=== PATIENT | female | born 1960 | race Caucasian/White ===

== ENCOUNTER 2016-12-16 11:11 | Outpatient (CLI) | payer BC | END 2016-12-16 11:12 | disposition home or self-care (01) | DX: E11.9 Type 2 diabetes mellitus without complications (principal); E78.5 Hyperlipidemia, unspecified; D50.9 Iron deficiency anemia, unspecified ==

== ENCOUNTER 2017-07-16 11:46 | Outpatient (CLI) | payer BC ==
[2017-07-16 19:10] LABS: BASOPHILS # (AUTO) 0.1 10^3/uL (0.0-0.1); BASOPHILS % (AUTO) 0.6 %; EOSINOPHILS # (AUTO) 0.2 10^3/uL (0.0-0.7); EOSINOPHILS % (AUTO) 2.2 %; HCT - HEMATOCRIT 40.8 % (37.0-47.0); HGB - HEMOGLOBIN 13.5 g/dL (12.0-16.0); MEAN CORPUSCULAR HGB CONC 33.1 g/dL (32.0-36.0); MEAN CORPUSCULAR VOLUME 96.5 fL (81.0-99.0); MEAN PLATELET VOLUME 8.9 fL (7.9-10.8); MONOCYTES # (AUTO) 0.4 10^3/uL (0.0-1.0); MONOCYTES % (AUTO) 5.1 %; NEUTROPHILS % (AUTO) 69.1 %; NUCLEATED RED BLOOD CELLS AUTO 0.1 /100WBC; RED BLOOD COUNT 4.23 10^6/uL (4.20-5.40); RED CELL DISTRIBUTION WIDTH 13.6 % (12.0-15.0); UNCORRECTED WHITE BLOOD COUNT 8.7 x10^3/uL; WHITE BLOOD COUNT 8.7 x10^3/uL (4.8-10.8)
[2017-07-16 19:33] LABS: HEMOGLOBIN A1C 0.57 g/dL
[2017-07-16 19:34] LABS: PLATELET ESTIMATE, MANUAL NORMAL (130-450,000) (NORMAL); PLATELET MORPHOLOGY 1+ LARGE PLATELETS (NORMAL)
[2017-07-16 19:37] LABS: ALBUMIN/GLOBULIN RATIO 1.7 (1.0-2.2); BILIRUBIN,TOTAL 0.6 mg/dL (0.2-1.0); BUN - BLOOD UREA NITROGEN 9 mg/dL (6-20); CALCIUM 9.5 mg/dL (8.5-10.3); CARBON DIOXIDE - CO2 28 mmol/L (21-32); CHLORIDE 100 mmol/L (101-111); CHOL/HDL RATIO 4.5 (<4.4); CHOLESTEROL 237 mg/dL; CREATININE 0.6 mg/dL (0.4-1.0); GFR - MDRD 103 (>89); GLUCOSE 146 mg/dL (70-100); HDL CHOLESTEROL 53 mg/dL; LDL/HDL RATIO 2.4 (<4.4); POTASSIUM 3.9 mmol/L (3.5-5.0); SODIUM 139 mmol/L (135-145); TOTAL PROTEIN 7.8 g/dL (6.7-8.2); TRIGLYCERIDES 274 mg/dL; VLDL CHOLESTEROL 55 mg/dL
== END 2017-07-16 11:47 | disposition home or self-care (01) ==
LOC: LAB.WCP 11:46
PROVIDERS: ATTEND Family Medicine
DX: E11.9 Type 2 diabetes mellitus without complications (principal)
CPT/HCPCS: 36415; 80053; 80061; 83036; 85025

== ENCOUNTER 2017-07-17 11:18 | Outpatient (CLI) | payer BC ==
[2017-07-19 16:16] LABS: TEST RESULT REPORT (())
== END 2017-07-17 11:19 | disposition home or self-care (01) ==
LOC: LAB.R 11:18
PROVIDERS: ATTEND Family Medicine
DX: R19.7 Diarrhea, unspecified (principal)
CPT/HCPCS: 81599; 83630; 87045; 87046; 87177; 87209; 87329; 87493; 89055

== ENCOUNTER 2017-12-11 08:00 | Outpatient (CLI) | payer BC ==
[2017-12-11 12:35] LABS: BASOPHILS % (AUTO) 0.5 %; EOSINOPHILS # (AUTO) 0.1 10^3/uL (0.0-0.7); HGB - HEMOGLOBIN 14.2 g/dL (12.0-16.0); LYMPHOCYTES # (AUTO) 3.6 10^3/uL (1.5-3.5); LYMPHOCYTES % (AUTO) 38.4 %; MEAN CORPUSCULAR HEMOGLOBIN 32.6 pg (27.0-31.0); MEAN CORPUSCULAR HGB CONC 34.4 g/dL (32.0-36.0); MEAN CORPUSCULAR VOLUME 94.9 fL (81.0-99.0); MEAN PLATELET VOLUME 8.4 fL (7.9-10.8); MONOCYTES # (AUTO) 0.5 10^3/uL (0.0-1.0); MONOCYTES % (AUTO) 5.3 %; NEUTROPHILS # (AUTO) 5.1 10^3/uL (1.5-6.6); NEUTROPHILS % (AUTO) 54.8 %; PLT - PLATELET COUNT 244 10^3/uL (130-450); RED BLOOD COUNT 4.36 10^6/uL (4.20-5.40); RED CELL DISTRIBUTION WIDTH 13.5 % (12.0-15.0); WHITE BLOOD COUNT 9.4 x10^3/uL (4.8-10.8)
[2017-12-11 12:55] LABS: THYROID STIMULATING HORMONE 3.91 uIU/mL (0.34-5.60)
[2017-12-11 12:59] LABS: FERRITIN 121.7 ng/mL (11.0-306.8)
[2017-12-11 13:03] LABS: % IRON SATURATION 27 % (20-50); ALBUMIN 4.9 g/dL (3.2-5.5); ALBUMIN/GLOBULIN RATIO 1.7 (1.0-2.2); ALKALINE PHOSPHATASE 68 IU/L (42-121); ALT ALANINE AMINOTRANSFERASE 48 IU/L (10-60); AST ASPARTATE AMINOTRANSFERASE 51 IU/L (10-42); BILIRUBIN,TOTAL 0.6 mg/dL (0.2-1.0); BUN - BLOOD UREA NITROGEN 15 mg/dL (6-20); CALCIUM 9.3 mg/dL (8.5-10.3); CARBON DIOXIDE - CO2 26 mmol/L (21-32); CHLORIDE 103 mmol/L (101-111); CHOL/HDL RATIO 4.2 (<4.4); CHOLESTEROL 290 mg/dL; CREATININE 0.5 mg/dL (0.4-1.0); GFR - MDRD 128 (>89); GLUCOSE 95 mg/dL (70-100); HDL CHOLESTEROL 69 mg/dL; IRON 113 ug/dL (28-170); LDL CHOLESTEROL,CALCULATED 163 mg/dL; LDL/HDL RATIO 2.4 (<4.4); SODIUM 140 mmol/L (135-145); TOTAL IRON BINDING CAPACITY 416 ug/dL (250-450); TOTAL PROTEIN 7.8 g/dL (6.7-8.2); TRANSFERRIN 297 mg/dL (192-382); VLDL CHOLESTEROL 58 mg/dL
[2017-12-11 13:18] LABS: HB2 TOTAL 15.8 g/dL; HEMOGLOBIN A1C 0.64 g/dL; HEMOGLOBIN A1C % 5.9 % (4.6-6.2)
== END 2017-12-11 08:01 | disposition home or self-care (01) ==
LOC: LAB.WCP 08:00
PROVIDERS: ATTEND Family Medicine
DX: I10 Essential (primary) hypertension (principal); E78.5 Hyperlipidemia, unspecified; E11.9 Type 2 diabetes mellitus without complications; D50.9 Iron deficiency anemia, unspecified
CPT/HCPCS: 36415; 80053; 80061; 82043; 82728; 83036; 83540; 83721; 84443; 84466; 85025

== ENCOUNTER 2018-03-10 07:10 | Outpatient (CLI) | payer BC ==
[2018-03-10] MEDS ORDERED: IOPAMIDOL-300 50 ML VIAL ONE (07:32)
[2018-03-10] MEDS ORDERED: IOPAMIDOL-300 100 ML VIAL ONE (07:32)
[2018-03-10] MEDS ORDERED: IOPAMIDOL-300 50 ML VIAL PO ONE (08:54)
[2018-03-10] MEDS ORDERED: IOPAMIDOL-300 100 ML VIAL IVP ONE (08:54)
--- NOTE | 2018-03-10 12:53 | CT Report ---
CT ABDOMEN AND PELVIS WITH CONTRAST: 03/10/2018 CLINICAL INDICATION: Abdominal pain. TECHNIQUE: Axial CT images of the abdomen and pelvis were obtained with 100 mL Isovue 300 intravenously as well as oral contrast. FINDINGS: Limited evaluation of the lung bases is unremarkable. ABDOMEN: The liver is enlarged, and demonstrates decreased attenuation, compatible with fatty infiltration. No focal hepatic lesion or intrahepatic biliary dilatation is appreciated. The gallbladder is not dilated. The spleen, pancreas, kidneys and adrenal glands are unremarkable. No bowel dilatation, free gas, or free fluid is present. No abdominal adenopathy is seen. PELVIS: The appendix is seen in the right lower quadrant, and demonstrates normal caliber. No pelvic adenopathy or free fluid is present. The pelvic organs appear unremarkable. Osseous structures demonstrate degenerative changes. IMPRESSION: FATTY INFILTRATION OF THE LIVER. CT DOSE REDUCTION STATEMENT In accordance with CT protocol optimization, one or more of the following dose reduction techniques were utilized for this exam: automated exposure control, adjustment of mA and/or KV based on patient size, or use of iterative reconstructive technique. TD: 03/10/2018 12:52
== END 2018-03-10 07:11 | disposition home or self-care (01) ==
LOC: DI 07:10
PROVIDERS: ATTEND Family Medicine
DX: R10.9 Unspecified abdominal pain (principal); K76.0 Fatty (change of) liver, not elsewhere classified
CPT/HCPCS: 74177; Q9967

== ENCOUNTER 2018-03-20 10:45 | Outpatient (CLI) | payer BC | END 2018-03-20 10:46 | disposition home or self-care (01) | LOC: LAB.WCP 10:45 | PROVIDERS: ATTEND Family Medicine | DX: N76.0 Acute vaginitis (principal) | CPT/HCPCS: 87070; 87205 ==

== ENCOUNTER 2018-04-14 16:29 | Outpatient (CLI) | payer BC ==
[2018-04-14 19:07] LABS: BASOPHILS # (AUTO) 0.1 10^3/uL (0.0-0.1); BASOPHILS % (AUTO) 0.7 %; EOSINOPHILS # (AUTO) 0.2 10^3/uL (0.0-0.7); EOSINOPHILS % (AUTO) 1.8 %; LYMPHOCYTES # (AUTO) 2.2 10^3/uL (1.5-3.5); LYMPHOCYTES % (AUTO) 25.6 %; MEAN CORPUSCULAR HEMOGLOBIN 31.8 pg (27.0-31.0); MEAN CORPUSCULAR HGB CONC 33.6 g/dL (32.0-36.0); MEAN CORPUSCULAR VOLUME 94.6 fL (81.0-99.0); MEAN PLATELET VOLUME 9.1 fL (7.9-10.8); MONOCYTES # (AUTO) 0.5 10^3/uL (0.0-1.0); MONOCYTES % (AUTO) 5.3 %; NEUTROPHILS # (AUTO) 5.8 10^3/uL (1.5-6.6); NEUTROPHILS % (AUTO) 66.6 %; PLT - PLATELET COUNT 207 10^3/uL (130-450); RED BLOOD COUNT 4.09 10^6/uL (4.20-5.40); RED CELL DISTRIBUTION WIDTH 12.8 % (12.0-15.0); WHITE BLOOD COUNT 8.7 x10^3/uL (4.8-10.8)
[2018-04-14 19:39] LABS: ALBUMIN 4.7 g/dL (3.2-5.5); ALBUMIN/GLOBULIN RATIO 1.8 (1.0-2.2); BILIRUBIN,TOTAL 0.6 mg/dL (0.2-1.0); CALCIUM 9.2 mg/dL (8.5-10.3); CREATININE 0.5 mg/dL (0.4-1.0); TOTAL PROTEIN 7.3 g/dL (6.7-8.2); URIC ACID 8.2 mg/dL (2.6-7.2)
== END 2018-04-14 16:30 | disposition home or self-care (01) ==
LOC: LAB.WCP 16:29
PROVIDERS: ATTEND Family Medicine
DX: I10 Essential (primary) hypertension (principal); M79.675 Pain in left toe(s)
CPT/HCPCS: 36415; 80053; 84550; 85025

== ENCOUNTER 2018-06-12 12:58 | Outpatient (CLI) | payer BC | END 2018-06-12 12:59 | disposition home or self-care (01) | LOC: LAB.WCP 12:58 | PROVIDERS: ATTEND Podiatrist | DX: E79.0 Hyperuricemia without signs of inflammatory arthritis and tophaceous disease (principal) | CPT/HCPCS: 36415; 84550 ==

== ENCOUNTER 2018-08-11 10:58 | Outpatient (CLI) | payer BC ==
[2018-08-11 18:58] LABS: BASOPHILS # (AUTO) 0.1 10^3/uL (0.0-0.1); BASOPHILS % (AUTO) 0.7 %; EOSINOPHILS # (AUTO) 0.2 10^3/uL (0.0-0.7); HGB - HEMOGLOBIN 13.1 g/dL (12.0-16.0); LYMPHOCYTES # (AUTO) 1.4 10^3/uL (1.5-3.5); LYMPHOCYTES % (AUTO) 18.4 %; MEAN CORPUSCULAR HEMOGLOBIN 32.3 pg (27.0-31.0); MEAN CORPUSCULAR HGB CONC 33.6 g/dL (32.0-36.0); MEAN CORPUSCULAR VOLUME 96.2 fL (81.0-99.0); MEAN PLATELET VOLUME 9.5 fL (7.9-10.8); MONOCYTES # (AUTO) 0.5 10^3/uL (0.0-1.0); MONOCYTES % (AUTO) 6.9 %; NEUTROPHILS # (AUTO) 5.3 10^3/uL (1.5-6.6); PLT - PLATELET COUNT 234 10^3/uL (130-450); RED BLOOD COUNT 4.05 10^6/uL (4.20-5.40); RED CELL DISTRIBUTION WIDTH 13.6 % (12.0-15.0); WHITE BLOOD COUNT 7.5 x10^3/uL (4.8-10.8)
[2018-08-11 19:04] LABS: ALBUMIN 4.4 g/dL (3.2-5.5); ALBUMIN/GLOBULIN RATIO 1.4 (1.0-2.2); ALKALINE PHOSPHATASE 76 IU/L (42-121); ALT ALANINE AMINOTRANSFERASE 33 IU/L (10-60); AST ASPARTATE AMINOTRANSFERASE 52 IU/L (10-42); BILIRUBIN,TOTAL 0.7 mg/dL (0.2-1.0); BUN - BLOOD UREA NITROGEN 8 mg/dL (6-20); CALCIUM 9.5 mg/dL (8.5-10.3); CARBON DIOXIDE - CO2 27 mmol/L (21-32); CHLORIDE 101 mmol/L (101-111); CHOL/HDL RATIO 3.8 (<4.4); CHOLESTEROL 218 mg/dL; CREATININE 0.7 mg/dL (0.4-1.0); GFR - MDRD 86 (>89); GLUCOSE 134 mg/dL (70-100); HDL CHOLESTEROL 57 mg/dL; LDL CHOLESTEROL,CALCULATED 114 mg/dL; SODIUM 140 mmol/L (135-145); TOTAL PROTEIN 7.6 g/dL (6.7-8.2); URIC ACID 6.7 mg/dL (2.6-7.2); VLDL CHOLESTEROL 47 mg/dL
[2018-08-11 19:16] LABS: HB2 TOTAL 13.6 g/dL; HEMOGLOBIN A1C 0.53 g/dL; HEMOGLOBIN A1C % 5.7 % (4.6-6.2)
== END 2018-08-11 10:59 | disposition home or self-care (01) ==
LOC: LAB.WCP 10:58
PROVIDERS: ATTEND Family Medicine
DX: I10 Essential (primary) hypertension (principal); E78.5 Hyperlipidemia, unspecified; E11.9 Type 2 diabetes mellitus without complications; M10.00 Idiopathic gout, unspecified site
CPT/HCPCS: 36415; 80053; 80061; 82043; 83036; 83721; 84443; 84550; 85025

== ENCOUNTER 2018-11-23 12:54 | Outpatient (CLI) | payer BC ==
[2018-11-23 19:32] LABS: BASOPHILS % (AUTO) 0.6 %; EOSINOPHILS % (AUTO) 0.7 %; HGB - HEMOGLOBIN 12.3 g/dL (12.0-16.0); LYMPHOCYTES # (AUTO) 1.9 10^3/uL (1.5-3.5); LYMPHOCYTES % (AUTO) 32.3 %; MEAN CORPUSCULAR HEMOGLOBIN 32.3 pg (27.0-31.0); MEAN CORPUSCULAR HGB CONC 33.3 g/dL (32.0-36.0); MEAN CORPUSCULAR VOLUME 97.1 fL (81.0-99.0); MEAN PLATELET VOLUME 8.9 fL (7.9-10.8); MONOCYTES # (AUTO) 0.4 10^3/uL (0.0-1.0); MONOCYTES % (AUTO) 7.2 %; NEUTROPHILS # (AUTO) 3.5 10^3/uL (1.5-6.6); NEUTROPHILS % (AUTO) 59.2 %; PLT - PLATELET COUNT 192 10^3/uL (130-450); RED CELL DISTRIBUTION WIDTH 14.4 % (12.0-15.0); WHITE BLOOD COUNT 5.9 x10^3/uL (4.8-10.8)
== END 2018-11-23 23:59 | disposition home or self-care (01) ==
LOC: LAB.WCP 12:54
PROVIDERS: ATTEND Family Medicine
DX: D50.9 Iron deficiency anemia, unspecified (principal)
CPT/HCPCS: 36415; 85025

== ENCOUNTER 2019-01-12 10:59 | Outpatient (CLI) | payer BC ==
--- NOTE | 2019-01-12 14:20 | CT Report ---
Reason: CHRONIC SINUSITIS Procedure Date: 01/12/2019 Accession Number: [id number] / [id number] Procedure: CT - Sinuses CPT Code: FULL RESULT: EXAM: CT SINUS EXAM DATE: 01/12/2019 11:19 AM. HISTORY: Chronic sinusitis. COMPARISONS: Sinuses 12/14/2015 10:29 AM. TECHNIQUE: Routine multi-axial CT imaging performed through the sinuses. Iodinated IV contrast: None. Reconstructions: Multiplanar reformats. In accordance with CT protocol optimization, one or more of the following dose reduction techniques were utilized for this exam: automated exposure control, adjustment of mA and/or KV based on patient size, or use of iterative reconstructive technique. FINDINGS: Compared to 2016, there has been interval sinus surgery with marked improvement of imaging appearance. There is residual sinusitis as described. RIGHT Frontal: Small mucoid retention cyst. Ethmoid: Partially resected with mucoperiosteal thickening in residual anatomy. Maxillary: Essentially complete opacification. Sphenoid: Mucoid retention cyst, 25% of volume. LEFT Frontal: Frothy opacification, possibly acute component. Ethmoid: Mucoperiosteal thickening of residual structures, mostly resected. Maxillary: Dependent opacification of the inferior 50%. Sphenoid: Small mucoid retention cyst. Drainage Pathways: The patient is status post sinus surgery with resection of the ostiomeatal complexes and portion of the turbinates bilaterally. The frontal recesses are patent and the sphenoethmoidal passage is widely open status post resection. Nasal Cavity: Widely patent airways status post resection. Osseous Structures: While there is mild mucoperiosteal thickening and some demineralization, osseous margins are intact. Orbits: Unremarkable. Other: None. IMPRESSION: Interval sinus surgery with improvement in sinusitis with evidence of chronic sinusitis as described above. Possibly acute opacification of the left frontal sinus, also seen in 2016. RADIA
== END 2019-01-12 11:00 | disposition home or self-care (01) ==
LOC: DI 10:59
PROVIDERS: ATTEND Family Medicine
DX: J32.9 Chronic sinusitis, unspecified (principal)
CPT/HCPCS: 70486

== ENCOUNTER 2019-01-19 14:30 | Outpatient (CLI) | payer BC | END 2019-01-19 14:31 | disposition home or self-care (01) | LOC: SC 14:30 | PROVIDERS: ATTEND Internal Medicine Pulmonary Disease | DX: G47.33 Obstructive sleep apnea (adult) (pediatric) (principal); E66.9 Obesity, unspecified; Z68.30 Body mass index [BMI] 30.0-30.9, adult | CPT/HCPCS: 99203; 99212 ==

== ENCOUNTER 2019-02-23 08:00 | Outpatient (CLI) | payer BC ==
[2019-02-23 12:45] LABS: BASOPHILS % (AUTO) 0.7 %; EOSINOPHILS # (AUTO) 0.1 10^3/uL (0.0-0.7); EOSINOPHILS % (AUTO) 1.5 %; LYMPHOCYTES # (AUTO) 1.7 10^3/uL (1.5-3.5); LYMPHOCYTES % (AUTO) 28.9 %; MEAN CORPUSCULAR HEMOGLOBIN 29.7 pg (27.0-31.0); MEAN CORPUSCULAR HGB CONC 32.5 g/dL (32.0-36.0); MEAN CORPUSCULAR VOLUME 91.2 fL (81.0-99.0); MEAN PLATELET VOLUME 9.1 fL (7.9-10.8); MONOCYTES # (AUTO) 0.5 10^3/uL (0.0-1.0); MONOCYTES % (AUTO) 8.8 %; NEUTROPHILS # (AUTO) 3.6 10^3/uL (1.5-6.6); NEUTROPHILS % (AUTO) 60.1 %; PLT - PLATELET COUNT 214 10^3/uL (130-450); RED BLOOD COUNT 3.71 10^6/uL (4.20-5.40); RED CELL DISTRIBUTION WIDTH 14.8 % (12.0-15.0); WHITE BLOOD COUNT 5.9 x10^3/uL (4.8-10.8)
[2019-02-23 13:10] LABS: ALBUMIN 4.4 g/dL (3.2-5.5); ALBUMIN/GLOBULIN RATIO 1.5 (1.0-2.2); BILIRUBIN,TOTAL 0.4 mg/dL (0.2-1.0); CALCIUM 9.2 mg/dL (8.5-10.3); CREATININE 0.5 mg/dL (0.4-1.0); TOTAL PROTEIN 7.3 g/dL (6.7-8.2); URIC ACID 5.2 mg/dL (2.6-7.2)
[2019-02-23 13:58] LABS: HB2 TOTAL 11.8 g/dL; HEMOGLOBIN A1C 0.5 g/dL
== END 2019-02-23 23:59 | disposition home or self-care (01) ==
LOC: LAB.WCP 08:00
PROVIDERS: ATTEND Physician Assistant
DX: E11.9 Type 2 diabetes mellitus without complications (principal); M10.00 Idiopathic gout, unspecified site
CPT/HCPCS: 36415; 80053; 83036; 84550; 85025

== ENCOUNTER 2019-03-01 08:00 | Outpatient (CLI) | payer BC ==
[2019-03-01 20:24] LABS: % IRON SATURATION 10 % (20-50); IRON 46 ug/dL (28-170); TOTAL IRON BINDING CAPACITY 465 ug/dL (250-450); TRANSFERRIN 332 mg/dL (192-382)
== END 2019-03-01 23:59 | disposition home or self-care (01) ==
LOC: LAB.WCP 08:00
PROVIDERS: ATTEND Physician Assistant
DX: D50.9 Iron deficiency anemia, unspecified (principal)
CPT/HCPCS: 36415; 82728; 83540; 84466

== ENCOUNTER 2019-05-08 13:01 | Outpatient (CLI) | payer BC ==
--- NOTE | 2019-05-17 17:14 | HISTORY & PHYSICAL EXAMINATION ---
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 HEENT: reports: Rhinoplasty Meds/Allgy - Home Medications Home Medications: Ambulatory Orders Medication Instructions Recorded Confirmed Amlodipine Besylate 5 mg PO DAILY 10/05/14 06/27/16 Pravastatin Sodium 20 mg PO DAILY 10/05/14 06/27/16 Sertraline [Zoloft] 100 mg PO DAILY 10/05/14 06/27/16 Telmisartan [Micardis] 80 mg PO DAILY 10/05/14 06/27/16 Tiotropium [place] [Spiriva] 18 mcg IH BID PRN 10/05/14 06/27/16 Albuterol [Ventolin Hfa] 2 puffs INH Q4H PRN 10/06/14 06/27/16 Aspirin [Aspir 81] 81 mg PO DAILY 09/08/15 06/27/16 metFORMIN [Glucophage] 500 mg PO BID 09/08/15 06/27/16 Ascorbic Acid [Vitamin C] 500 mg PO BID 06/05/16 06/27/16 Ferrous Sulfate 325 mg PO BID 06/05/16 06/27/16 - Allergies Allergies/Adverse Reactions: Allergies Allergy/AdvReac Type Severity Reaction Status Date / Time adhesive AdvReac Severe Welts/Hives Verified 09/08/15 17:27 codeine AdvReac Severe Hallucinations/ Verified 09/08/15 17:27 Nightmares latex AdvReac Severe Welts/Hives Verified 09/08/15 17:27 Sulfa (Sulfonamide AdvReac Severe Nausea/Vomi Verified 09/08/15 17:27 Antibiotics) ting tapes Allergy Hives Uncoded 06/27/16 13:38
== END 2019-05-08 23:59 | disposition home or self-care (01) ==
LOC: LAB.R 13:01
PROVIDERS: ATTEND Surgery
DX: R19.4 Change in bowel habit (principal)
CPT/HCPCS: 81599; 83630; 87045; 87046; 87177; 87209; 87329; 87493; 89055

== ENCOUNTER 2019-06-16 | Day surgery (SDC) | payer BC | END 2019-06-16 06:40 | disposition home or self-care (01) | PROC: 0DBE8ZX Excision of Large Intestine, Via Natural or Artificial Opening Endoscopic, Diagnostic (ICD-10-PCS; principal; 2019-06-16) | DX: R19.4 Change in bowel habit (principal); K64.8 Other hemorrhoids; Z86.010 Personal history of colon polyps; R19.7 Diarrhea, unspecified; J45.909 Unspecified asthma, uncomplicated; I10 Essential (primary) hypertension; G47.30 Sleep apnea, unspecified; E11.9 Type 2 diabetes mellitus without complications; D64.9 Anemia, unspecified | CPT/HCPCS: 45380; 87493; J3010; J7120 ==

== ENCOUNTER 2019-07-08 08:00 | Outpatient (CLI) | payer BC ==
[2019-07-08 14:03] LABS: H. PYLORIS ANTIGEN STL NEGATIVE (Negative)
== END 2019-07-08 23:59 | disposition home or self-care (01) ==
LOC: LAB.R 08:00
PROVIDERS: ATTEND Surgery
DX: R19.7 Diarrhea, unspecified (principal)
CPT/HCPCS: 87338

== ENCOUNTER 2019-08-17 08:00 | Outpatient (CLI) | payer BC ==
[2019-08-17 19:01] LABS: BASOPHILS # (AUTO) 0.1 10^3/uL (0.0-0.1); BASOPHILS % (AUTO) 0.4 %; EOSINOPHILS # (AUTO) 0.1 10^3/uL (0.0-0.7); EOSINOPHILS % (AUTO) 0.7 %; HGB - HEMOGLOBIN 13.7 g/dL (12.0-16.0); LYMPHOCYTES # (AUTO) 1.8 10^3/uL (1.5-3.5); LYMPHOCYTES % (AUTO) 15.5 %; MEAN CORPUSCULAR HEMOGLOBIN 33.7 pg (27.0-31.0); MEAN CORPUSCULAR HGB CONC 33.7 g/dL (32.0-36.0); MEAN PLATELET VOLUME 10.8 fL (7.9-10.8); MONOCYTES # (AUTO) 0.8 10^3/uL (0.0-1.0); MONOCYTES % (AUTO) 6.6 %; PLT - PLATELET COUNT 243 10^3/uL (130-450); RED BLOOD COUNT 4.07 10^6/uL (4.20-5.40); RED CELL DISTRIBUTION WIDTH 13.7 % (12.0-15.0); WHITE BLOOD COUNT 11.9 x10^3/uL (4.8-10.8)
[2019-08-17 19:37] LABS: HB2 TOTAL 14.3 g/dL; HEMOGLOBIN A1C 0.52 g/dL; HEMOGLOBIN A1C % 5.5 % (4.6-6.2)
[2019-08-17 19:41] LABS: ALBUMIN 4.5 g/dL (3.2-5.5); ALBUMIN/GLOBULIN RATIO 1.7 (1.0-2.2); ALKALINE PHOSPHATASE 83 IU/L (42-121); ALT ALANINE AMINOTRANSFERASE 25 IU/L (10-60); AST ASPARTATE AMINOTRANSFERASE 35 IU/L (10-42); BILIRUBIN,TOTAL 0.6 mg/dL (0.2-1.0); BUN - BLOOD UREA NITROGEN 6 mg/dL (6-20); CALCIUM 8.9 mg/dL (8.5-10.3); CARBON DIOXIDE - CO2 27 mmol/L (21-32); CHLORIDE 100 mmol/L (101-111); CHOL/HDL RATIO 3.5 (<4.4); CHOLESTEROL 181 mg/dL; CREATININE 0.6 mg/dL (0.4-1.0); GFR - MDRD 103 (>89); GLUCOSE 172 mg/dL (70-100); HDL CHOLESTEROL 52 mg/dL; LDL CHOLESTEROL,CALCULATED 97 mg/dL; LDL/HDL RATIO 1.9 (<4.4); SODIUM 138 mmol/L (135-145); TOTAL PROTEIN 7.2 g/dL (6.7-8.2); VLDL CHOLESTEROL 32 mg/dL
== END 2019-08-17 08:01 | disposition home or self-care (01) ==
LOC: LAB.WCP 08:00
PROVIDERS: ATTEND Family Medicine
DX: E11.9 Type 2 diabetes mellitus without complications (principal)
CPT/HCPCS: 36415; 80053; 80061; 83036; 83721; 84443; 85025

== ENCOUNTER 2019-08-26 10:18 | Outpatient (CLI) | payer BC, MEDICAID ==
--- NOTE | 2019-08-26 11:53 | Ultrasound Report ---
Reason: ABDOMINAL BLOATING, ALCOHOL USE Procedure Date: 08/26/2019 Accession Number: [id number] / [id number] Procedure: US - Abdomen Complete CPT Code: FULL RESULT: EXAM: ABDOMEN ULTRASOUND EXAM DATE: 08/26/2019 11:09 AM. CLINICAL HISTORY: Abdominal bloating, alcoholic abuse. COMPARISON: ABDOMEN COMPLETE 06/08/2016 8:26 AM. TECHNIQUE: Real-time scanning was performed with static images obtained. FINDINGS: Liver: The liver parenchyma is moderate to severely echogenic diffusely. No sonographic evidence for cirrhosis or mass lesion. The right lobe is enlarged measuring 22.1 cm. Main portal vein flow: Hepatopetal. Gallbladder: A small mobile gallbladder stone measures 4 mm. Two 4 mm polyps are also present within the gallbladder neck. No sonographic Bucio sign or wall thickening. Biliary System: Common bile duct measures 6 mm. No intrahepatic or extrahepatic ductal dilatation. Pancreas: Visualized portion is unremarkable. Kidneys: Right: 12.9 cm longitudinally. Normal. No contour-deforming mass, stones, or hydronephrosis. Left: 12.3 cm longitudinally. Normal. No contour-deforming mass, stones, or hydronephrosis. Spleen: 10.2 cm. Normal in size and echotexture. Aorta and Inferior Vena Cava: Unremarkable. Other: None. IMPRESSION: 1. 4 mm gallbladder stone, newly identified. No evidence for acute cholecystitis. 2. 2 probable small 4 mm gallbladder neck polyps, newly identified. 3. Moderate to severely fatty infiltrated liver, as before. RADIA
== END 2019-08-26 10:19 | disposition home or self-care (01) ==
LOC: DI 10:18
PROVIDERS: ATTEND Family Medicine
DX: K80.20 Calculus of gallbladder without cholecystitis without obstruction (principal); K76.0 Fatty (change of) liver, not elsewhere classified
CPT/HCPCS: 76700

== ENCOUNTER 2019-08-26 13:54 | Outpatient (CLI) | payer BC, MEDICAID ==
--- NOTE | 2019-08-27 23:56 | XRAY Report ---
Reason: CHEST WALL PAIN Procedure Date: 08/26/2019 Accession Number: [id number] / [id number] Procedure: WCP - Chest 2 View X-Ray CPT Code: 59343 FULL RESULT: EXAM: CHEST RADIOGRAPHY EXAM DATE: 08/26/2019 01:54 PM. CLINICAL HISTORY: CHEST WALL PAIN. COMPARISON: CHEST 2 VIEW PA/LAT 01/07/2018 10:51 AM. TECHNIQUE: 2 views. FINDINGS: Lungs/Pleura: No focal opacities evident. No pleural effusion. No pneumothorax. Normal volumes. Mediastinum: Heart and mediastinal contours are unremarkable. Other: Moderate calcification of the abdominal aorta. Cervical spine fusion hardware. No acute bone findings. IMPRESSION: No acute cardiopulmonary disease seen. RADIA
== END 2019-08-26 23:59 | disposition home or self-care (01) ==
LOC: DI.WCP 13:54
PROVIDERS: ATTEND Family Medicine
DX: R07.89 Other chest pain (principal)
CPT/HCPCS: 71046

== ENCOUNTER 2019-09-10 09:03 | Outpatient (CLI) | payer BC, MEDICAID ==
--- NOTE | 2019-09-10 14:23 | Mammography Report ---
Reason: MASTALGIA Procedure Date: 09/10/2019 Accession Number: [id number] / [id number] Procedure: ARUN - Diagnostic Dig Bilat CPT Code: FULL RESULT: EXAM: Diagnostic Dig Bilat DATE: 09/10/2019 10:21 AM CLINICAL HISTORY: Right breast pain COMPARISON: 05/09/2016, 06/23/2014, 06/01/2013, 06/01/2012 TECHNIQUE: (B) - Bilateral CC and MLO views were obtained. PARENCHYMAL PATTERN: (D) - The breasts demonstrate heterogeneously dense fibroglandular parenchyma bilaterally. FINDINGS: Left breast: No significant interval change. There are no suspicious masses, calcifications, or areas of distortion. Right breast: On CC tomographic image 22 there is an oval 9 mm well-circumscribed high density nodule in the lateral breast 7.5 cm from the nipple. This is not definitely seen on the MLO projection. No suspicious calcifications or architectural distortion. RIGHT BREAST ULTRASOUND: TECHNIQUE: Real-time scanning of the entire lateral right breast with saved static images reviewed. FINDINGS: 3 normal appearing right breast lymph nodes are identified, all 8 cm from the nipple: 9:00: 5 x 4 x 4 mm 8:00: 5 x 3 x 3 mm 7:00 4 x 3 x 4 mm One of these likely accounts for the mammographic finding. No suspicious solid masses or abnormal fluid collections are seen. IMPRESSION: Benign findings. BI-RADS category 2. RECOMMENDATION: (ANNUAL) - Recommend routine annual screening mammography. BI-RADS CATEGORY: (2) - Benign Findings. STANDARD QUALIFYING STATEMENTS: 1. This examination was not reviewed with the aid of Computer-Aided Detection (CAD). 2. A negative or benign imaging report should not preclude biopsy if clinically suspicious findings are present. 3. Dense breasts may obscure an underlying neoplasm. 4. This examination was reviewed with the aid of 3D breast imaging (tomosynthesis).
== END 2019-09-10 09:04 | disposition home or self-care (01) ==
LOC: DI 09:03
PROVIDERS: ATTEND Family Medicine
DX: N64.4 Mastodynia (principal); N63.10 Unspecified lump in the right breast, unspecified quadrant
CPT/HCPCS: 76642; 77066

== ENCOUNTER 2019-12-14 12:35 | Outpatient (CLI) | payer BC, MEDICAID | END 2019-12-14 23:59 | disposition home or self-care (01) | LOC: LAB.WCP 12:35 | PROVIDERS: ATTEND Nurse Practitioner Family | DX: Z23 Encounter for immunization (principal) | CPT/HCPCS: 36415; 86735; 86762; 86765 ==

== ENCOUNTER 2020-02-02 09:44 | Outpatient (CLI) | payer BC, MEDICAID ==
--- NOTE | 2020-02-02 09:53 | XRAY Report ---
Reason: LEFT ELBOW PAIN Procedure Date: 02/02/2020 Accession Number: [id number] / [id number] Procedure: WCP - Elbow 2 View LT CPT Code: Final Report FULL RESULT: EXAM: LEFT ELBOW RADIOGRAPHY EXAM DATE: 02/02/2020 09:44 AM. CLINICAL HISTORY: LEFT ELBOW PAIN. COMPARISON: ELBOW 2 VIEW LT 10/20/2018 2:14 PM. TECHNIQUE: 2 views. FINDINGS: Bones: Normal. No fractures or bone lesions. Joints: Normal. No effusion. No subluxation. Soft Tissues: Normal. No soft tissue swelling. IMPRESSION: No acute process detected RADIA
== END 2020-02-02 23:59 | disposition home or self-care (01) ==
LOC: DI.WCP 09:44
PROVIDERS: ATTEND Nurse Practitioner Family
DX: M25.522 Pain in left elbow (principal)

== ENCOUNTER 2020-05-04 14:44 | Outpatient (CLI) | payer BC, MEDICAID ==
--- NOTE | 2020-05-04 17:32 | MRI Report ---
PROCEDURE: Foot LT W/O INDICATIONS: CHRONIC PAIN TECHNIQUE: Noncontrast coronal and sagittal T1 spin echo and STIR; axial T1 spin echo and T2 fast spin echo with fat saturation through the left foot. COMPARISON: None. FINDINGS: Image quality: Excellent. Bones: No fracture identified. First MTP joint degeneration. There is T2 hyperintense marginal focus at the medial aspect of the first metatarsal head which could represent degenerative cyst versus eros ion. There is overlying soft tissue swelling. Sesamoid marrow signal intensity within normal limits. Visualized flexor and extensor tendons are unremarkable. Soft tissues: The scanned muscles demonstrate normal overall bulk and internal signal. Subcutaneous tissues appear normal as well. No soft tissue masses are present. In the area marked by the fiduci al placed on the skin surface of the lateral mid/forefoot, no underlying marrow signal changes seen. No underlying soft tissue mass or signal abnormality. IMPRESSION: Chronic degenerative changes as above. Possible erosion versus cyst at the first metatarsal head with overlying soft tissue swelling. This f inding technically age indeterminate. No discrete lesion, mass or cyst identified in the area marked by the fiducial place in the lateral a spect of the midfoot/forefoot. Reviewed by: Tony Hudson MD on 05/04/2020 5:31 PM PDT Approved by: Tony Hudson MD on 05/04/2020 5:31 PM PDT Station ID: [id number]
== END 2020-05-04 14:45 | disposition home or self-care (01) ==
LOC: DI 14:44
PROVIDERS: ATTEND Podiatrist
DX: M19.072 Primary osteoarthritis, left ankle and foot (principal)

== ENCOUNTER 2020-05-05 11:46 | Outpatient (CLI) | payer BC, MEDICAID ==
--- NOTE | 2020-05-05 14:58 | MRI Report ---
PROCEDURE: Ankle LT W/O INDICATIONS: CHRONIC PAIN LATERALLY TECHNIQUE: Noncontrast coronal and sagittal T1 spin echo and STIR; axial T1 spin echo and T2 fast spin echo with fat saturation through the ankle. COMPARISON: None. FINDINGS: Image quality: Excellent. Bones and joints: No acute fracture. No suspicious osseous lesion of the midfoot or hindfoot bones is present. No joint effusions. No osteochondral defects. There is diffuse hindfoot and midfoot degenerative spurring and subchondral sclerosis Medial structures: Deltoid ligament intact. Spring ligament intact. Posterior tibialis intact. Minimal tenosynovitis. Flexor digitorum longus intact Flexor hallucis longus intact Posterior tibial neurovascular bundle appears normal within the tarsal tunnel, without extrinsic mass effect. Lateral structures: Anterior talofibular ligament intact. Calcaneofibular ligament intact. Posterior talofibular ligament intact. Anterior tibiofibular ligament intact. Posterior tibiofibular ligament intact. Peroneus longus normal Peroneus brevis normal. Dorsal lateral soft tissue subcutaneous edema. Sinus tarsi demonstrates normal fatty signal. Anterior structures: Dorsal talonavicular ligament intact. Tibialis anterior normal Extensor hallucis longus normal. Extensor digitorum longus normal Posterior and plantar structures: Achilles tendon intact. The medial and lateral bands of the plantar fascia are within normal limits. IMPRESSION: Minimal posterior tibialis tenosynovitis. Mild dorsal lateral soft tissue swelling and edema Reviewed by: Tony Hudson MD on 05/05/2020 2:57 PM PDT Approved by: Tony Hudson MD on 05/05/2020 2:57 PM PDT Station ID: [id number]
== END 2020-05-05 11:47 | disposition home or self-care (01) ==
LOC: DI 11:46
PROVIDERS: ATTEND Podiatrist
DX: M65.862 Other synovitis and tenosynovitis, left lower leg (principal); M79.89 Other specified soft tissue disorders; R60.0 Localized edema

== ENCOUNTER 2020-05-15 13:16 | Emergency (ER) | payer BC, MEDICAID ==
[2020-05-15 13:59] VITALS: BP 176/87
--- NOTE | 2020-05-15 14:03 | ED Physician Documentation ---
PD HPI UPPER EXT INJURY - Stated complaint Stated Complaint: R HAND INJ - Chief complaint Chief Complaint: Ext Problem - History obtained from History obtained from: Patient - Additonal information Additional information: Patient comes emergency department complaining of right middle finger pain that started apparently during a "[place] party" last night. She states she has no idea what happened to her, but states that her finger has been edematous and painful and that she cannot bend it because of this. Patient denies any other injuries. No other complaints at this time. Review of Systems Ten Systems: 10 systems reviewed and negative Constitutional: reports: Reviewed and negative Eyes: reports: Reviewed and negative Ears: reports: Reviewed and negative Nose: reports: Reviewed and negative Throat: reports: Reviewed and negative Cardiac: reports: Reviewed and negative Respiratory: reports: Reviewed and negative GI: reports: Reviewed and negative : reports: Reviewed and negative Skin: reports: Reviewed and negative Musculoskeletal: reports: Extremity pain, Extremity swelling Neurologic: reports: Reviewed and negative Psychiatric: reports: Reviewed and negative Endocrine: reports: Reviewed and negative Immunocompromised: reports: Reviewed and negative PD PAST MEDICAL HISTORY - Past Medical History Cardiovascular: Hypertension, High cholesterol Respiratory: Asthma, Sleep apnea Endocrine/Autoimmune: None GI: GERD, Colon polyps : None HEENT: None Psych: Anxiety Musculoskeletal: Osteoarthritis, Gout Derm: Other - Past Surgical History Past Surgical History: Yes General: Colonoscopy, EGD Ortho: Knee replacement, Shoulder arthroplasty, 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 HEENT: Other - Present Medications Home Medications: Ambulatory Orders Medication Instructions Recorded Confirmed Amlodipine Besylate 5 mg PO DAILY 10/05/14 06/16/19 Pravastatin Sodium 20 mg PO DAILY 10/05/14 06/16/19 Sertraline [Zoloft] 100 mg PO DAILY 10/05/14 06/16/19 Telmisartan [Micardis] 80 mg PO DAILY 10/05/14 06/16/19 Albuterol [Ventolin Hfa] 2 puffs INH Q4H PRN 10/06/14 06/16/19 Ascorbic Acid [Vitamin C] 500 mg PO BID 06/05/16 06/16/19 Ferrous Sulfate 325 mg PO BID 06/05/16 06/16/19 Folic Acid 1 mg PO DAILY 06/15/19 06/16/19 - Allergies Allergies/Adverse Reactions: Allergies Allergy/AdvReac Type Severity Reaction Status Date / Time clindamycin Allergy Hives Verified 06/16/19 07:34 adhesive AdvReac Severe Welts/Hives Verified 09/08/15 17:27 codeine AdvReac Severe Hallucinations/ Verified 09/08/15 17:27 Nightmares latex AdvReac Severe Welts/Hives Verified 09/08/15 17:27 Sulfa (Sulfonamide AdvReac Severe Nausea/Vomi Verified 09/08/15 17:27 Antibiotics) ting tapes Allergy Hives Uncoded 06/27/16 13:38 - Social History Does the pt smoke?: No Smoking Status: Former smoker Does the pt have substance abuse?: No - Immunizations Immunizations are current?: Yes PD ED PE NORMAL - Vitals Vital signs reviewed: Yes - General General: Alert and oriented X 3, No acute distress - HEENT HEENT: Atraumatic, PERRL, EOMI, Moist mucous membranes - Neck Neck: Supple, no meningeal sign - Cardiac Cardiac: Strong equal pulses - Respiratory Respiratory: No respiratory distress - Derm Derm: Warm and dry, Other (Patient has mild purplish discoloration of the right middle finger. No cellulitic erythema or induration. Mild edema.) - Extremities Extremities: No deformity, Other (Patient is tenderness to palpation diffusely over her right middle finger. Limited range of motion, secondary to swelling and pain.) - Neuro Neuro: Alert and oriented X 3, No motor deficit, No sensory deficit, Other - Psych Psych: Normal mood, Normal affect Results - Vitals Vitals: Vital Signs - 24 hr 05/15/20 05/15/20 13:19 13:57 Temperature 36.2 C L 36.6 C Heart Rate 79 80 Respiratory 16 16 Rate Blood Pressure 176/88 H 176/87 H O2 Saturation 95 99 Oxygen O2 Source Room air - Rads (name of study) R hand xr Radiology: Final report received, EMP read indepedently, See rad report (Final radiologist impression: Possible fractured osteophyte along the dorsal aspect of the distal phalanx of the middle finger although technically age-indeterminate please correlate with point tenderness. Diffuse joint degeneration, as above) PD MEDICAL DECISION MAKING - ED course Complexity details: reviewed results, re-evaluated patient, considered differential, d/w patient ED course: Patient was worked up with x-ray, which showed an osteophyte fracture at the DIP joint. The patient was placed in an aluminum foam splint and instructed to follow with her primary care physician about 2 weeks for repeat x-ray. We have discussed splint care and the usual indications for return. Departure - Departure Disposition: 01 Home, Self Care Clinical Impression: Finger fracture, right Qualifiers: Encounter type: initial encounter Finger: middle finger Fracture type: closed Phalanx: distal Fracture alignment: nondisplaced Qualified Code(s): S62.662A - Nondisplaced fracture of distal phalanx of right middle finger, initial encounter for closed fracture Condition: Stable Instructions: ED Fx Finger Closed Comments: Your x-ray shows a small "chip" fractures of your middle and and finger bones around the last joint of your finger. Please keep the splint on for the next couple of weeks and follow-up with your primary care physician for repeat x-ray to see how the fracture is healing. You may take the splint off for showering if you would like. Discharge Date/Time: 05/15/20 14:42
--- NOTE | 2020-05-15 14:03 | XRAY Report ---
PROCEDURE: Hand 3 View RT INDICATIONS: Fall TECHNIQUE: 3 views of the hand(s) acquired. COMPARISON: None. FINDINGS: Bones: Age-indeterminate possible osteophyte fracture seen along the dorsal aspect of the distal phal anx of the middle finger. No suspicious bony lesions. Diffuse interphalangeal joint degeneration. Chronic ununited osteophytes noted. 1 mm marginal lucency seen at the PIP joint of the index finger, and second MCP joint. These findings technically age indeterminate. Soft tissues: No suspicious soft tissue calcifications. IMPRESSION: Possible fractured osteophyte along the dorsal aspect of the distal phalanx of the middle finger alth ough technically age indeterminate. Please correlate with point tenderness. Diffuse joint degeneration as above. Reviewed by: Tony Hudson MD on 05/15/2020 2:02 PM PDT Approved by: Tony Hudson MD on 05/15/2020 2:02 PM PDT Station ID: [id number]
== END 2020-05-15 14:42 | disposition home or self-care (01) ==
LOC: ED 13:16
DX: S62.662A Nondisplaced fracture of distal phalanx of right middle finger, initial encounter for closed fracture (principal); W18.30XA Fall on same level, unspecified, initial encounter; Y92.009 Unspecified place in unspecified non-institutional (private) residence as the place of occurrence of the external cause; M25.741 Osteophyte, right hand; I10 Essential (primary) hypertension; Z87.891 Personal history of nicotine dependence
CPT/HCPCS: 99283

== ENCOUNTER 2020-08-15 14:26 | Emergency (ER) | payer BC, MEDICAID ==
--- NOTE | 2020-08-15 15:40 | XRAY Report ---
PROCEDURE: Ankle 3 View RT INDICATIONS: Trauma TECHNIQUE: 3 views of the ankle were acquired. COMPARISON: None FINDINGS: Bones: Oblique fracture of the distal fibula which extends into the distal tibiofibular joint. Ankle mortise is normally aligned. No suspicious bony lesions. Soft tissues: No tibiotalar joint effusion. Achilles tendon appears normal. IMPRESSION: Distal fibula fracture. Reviewed by: Orly Agarwal MD, PhD on 08/15/2020 3:39 PM PDT Approved by: Orly Agarwal MD, PhD on 08/15/2020 3:39 PM PDT Station ID: [id number]
--- NOTE | 2020-08-15 15:42 | ED Physician Documentation ---
PD HPI LOWER EXT INJURY - Stated complaint Stated Complaint: RT ANKLE INJ - Chief complaint Chief Complaint: Trauma Ext - History obtained from History obtained from: Patient - Additional information Additional information: Pt comes to the ED, c/o R ankle pain/swelling/bruising after slipping on water and falling. No other injuries. Review of Systems Ten Systems: 10 systems reviewed and negative Constitutional: reports: Reviewed and negative Eyes: reports: Reviewed and negative Ears: reports: Reviewed and negative Nose: reports: Reviewed and negative Throat: reports: Reviewed and negative Cardiac: reports: Reviewed and negative Respiratory: reports: Reviewed and negative GI: reports: Reviewed and negative : reports: Reviewed and negative Skin: reports: Reviewed and negative Musculoskeletal: reports: Joint pain, Joint swelling, Pain with weight bearing Neurologic: reports: Reviewed and negative Psychiatric: reports: Reviewed and negative Endocrine: reports: Reviewed and negative Immunocompromised: reports: Reviewed and negative PD PAST MEDICAL HISTORY - Past Medical History Past Medical History: Yes Cardiovascular: Hypertension, High cholesterol Respiratory: Asthma, Sleep apnea Neuro: Peripheral neuropathy Endocrine/Autoimmune: None GI: GERD, Colon polyps CABIN SUPERVISOR: None : None HEENT: None Psych: Anxiety Musculoskeletal: Osteoarthritis, Gout Derm: Other - Past Surgical History Past Surgical History: Yes General: Colonoscopy, EGD Ortho: Knee replacement, Shoulder arthroplasty, Other /CABIN SUPERVISOR: Tubal ligation HEENT: Other - Present Medications Home Medications: Ambulatory Orders Medication Instructions Recorded Confirmed Amlodipine Besylate 5 mg PO DAILY 10/05/14 06/16/19 Pravastatin Sodium 20 mg PO DAILY 10/05/14 06/16/19 Sertraline [Zoloft] 100 mg PO DAILY 10/05/14 06/16/19 Telmisartan [Micardis] 80 mg PO DAILY 10/05/14 06/16/19 Albuterol [Ventolin Hfa] 2 puffs INH Q4H PRN 10/06/14 06/16/19 Ascorbic Acid [Vitamin C] 500 mg PO BID 06/05/16 06/16/19 Ferrous Sulfate 325 mg PO BID 06/05/16 06/16/19 Folic Acid 1 mg PO DAILY 06/15/19 06/16/19 traMADol [Ultram] 50 mg PO Q4-6H PRN #15 tablet 08/15/20 - Allergies Allergies/Adverse Reactions: Allergies Allergy/AdvReac Type Severity Reaction Status Date / Time clindamycin Allergy Hives Verified 08/15/20 14:39 adhesive AdvReac Severe Welts/Hives Verified 08/15/20 14:39 codeine AdvReac Severe Hallucinations/ Verified 08/15/20 14:39 Nightmares latex AdvReac Severe Welts/Hives Verified 08/15/20 14:39 Sulfa (Sulfonamide AdvReac Severe Nausea/Vomi Verified 08/15/20 14:39 Antibiotics) ting tapes Allergy Hives Uncoded 08/15/20 14:39 - Social History Does the pt smoke?: No Smoking Status: Never smoker Does the pt drink ETOH?: Yes Does the pt have substance abuse?: No - Immunizations Immunizations are current?: Yes - POLST Patient has POLST: No PD ED PE NORMAL - Vitals Vital signs reviewed: Yes - General General: Alert and oriented X 3, No acute distress, Well developed/nourished - HEENT HEENT: Atraumatic, PERRL, EOMI, Moist mucous membranes - Neck Neck: Supple, no meningeal sign - Cardiac Cardiac: Strong equal pulses - Respiratory Respiratory: No respiratory distress - Derm Derm: Normal color, Warm and dry, No rash - Extremities Extremities: No deformity, Other (Moderate edema and contusion over R lateral malleolus) - Neuro Neuro: Alert and oriented X 3, No motor deficit, No sensory deficit - Psych Psych: Normal mood, Normal affect Results - Vitals Vitals: Vital Signs - 24 hr 08/15/20 08/15/20 14:38 16:11 Temperature 36.0 C L 37.0 C Heart Rate 73 76 Respiratory 16 16 Rate Blood Pressure 155/81 H 171/90 H O2 Saturation 96 98 Oxygen O2 Source Room air Procedures - Splint (location) R ankle Splint applied by: Tech Type of splint: Fiberglass, Short leg, Posterior Other: Patient tolerated well, No complications, Neurovascular intact, Crutches provided PD MEDICAL DECISION MAKING - ED course Complexity details: reviewed results, re-evaluated patient, considered differential, d/w patient ED course: Splint placed. D/w pt the need for ortho f/u for her fibular fx. Discussed need to be NWB. Departure - Departure Disposition: 01 Home, Self Care Clinical Impression: Fracture of distal fibula Qualifiers: Encounter type: initial encounter Fracture type: closed Fracture morphology: torus Laterality: right Qualified Code(s): S82.821A - Torus fracture of lower end of right fibula, initial encounter for closed fracture Condition: Stable Instructions: ED Fx Ankle Lateral Malleolus Follow-Up: Cj Neil MD [Provider Admit Priv/Credential] - Prescriptions: traMADol [Ultram] 50 mg PO Q4-6H PRN #15 tablet PRN Reason: Pain Comments: Your x-ray shows a spiral fracture of your fibula, the skinny bone on the outer aspect of your lower leg that forms the outside "bump" of your ankle. You have been placed in a splint for this. Please do not bear weight on that foot until you are cleared by orthopedics to do so. You have been given a work note excusing you from work until cleared by orthopedics. Please call first thing in the morning to make a follow-up appointment to follow-up with Dr. Neil or 1 of his associates as soon as possible. Forms: Activity restrictions Discharge Date/Time: 08/15/20 16:26
[2020-08-15 16:12] VITALS: BP 171/90
== END 2020-08-15 16:26 | disposition home or self-care (01) ==
LOC: ED 14:26
DX: S82.821A Torus fracture of lower end of right fibula, initial encounter for closed fracture (principal); W01.0XXA Fall on same level from slipping, tripping and stumbling without subsequent striking against object, initial encounter
CPT/HCPCS: 29515

== ENCOUNTER 2020-08-24 11:47 | Outpatient (CLI) | payer BC, MEDICAID ==
--- NOTE | 2020-08-24 15:25 | XRAY Report ---
PROCEDURE: Ankle 3 View RT INDICATIONS: NONDISPLACED FX OF LATERAL MALLEOULUS RT FIB TECHNIQUE: 3 views of the ankle were acquired. COMPARISON: 3 views of the ankle dated 08/15/2020 FINDINGS: Bones: Distal fibular fracture is redemonstrated. Fracture fragments are in unchanged anatomic alignm ent. Soft tissues: No tibiotalar joint effusion. Achilles tendon appears normal. Lateral malleolar soft tissue swelling has decreased in extent. IMPRESSION: Stable distal fibular fracture. Reviewed by: Stephanie Austin MD on 08/24/2020 3:23 PM PDT Approved by: Stephanie Austin MD on 08/24/2020 3:23 PM PDT Station ID: [id number]
== END 2020-08-24 11:48 | disposition home or self-care (01) ==
LOC: DI 11:47
PROVIDERS: ATTEND Orthopaedic Surgery
DX: S82.64XD Nondisplaced fracture of lateral malleolus of right fibula, subsequent encounter for closed fracture with routine healing (principal)

== ENCOUNTER 2020-09-21 11:43 | Outpatient (CLI) | payer BC, MEDICAID ==
--- NOTE | 2020-09-21 15:51 | XRAY Report ---
PROCEDURE: Ankle 3 View RT INDICATIONS: NONDISPLACED FRACTURE OF LAT MALLEOLUS RT FIBULA TECHNIQUE: 3 views of the ankle were acquired. COMPARISON: X-ray ankle 08/24/2020 FINDINGS: Bones: Stable alignment of distal fibular fracture as previously noted with mild interval healing. Th e fracture lucency appears to extend into the distal tibiofibular joint space. Ankle mortise is edith lly aligned. No suspicious bony lesions. Soft tissues: No tibiotalar joint effusion. Achilles tendon appears normal. IMPRESSION: Stable alignment of distal fibular fracture. Reviewed by: Tia Pena MD on 09/21/2020 3:50 PM PST Approved by: Tia Pena MD on 09/21/2020 3:50 PM PST Station ID: [id number]
== END 2020-09-21 11:44 | disposition home or self-care (01) ==
LOC: DI 11:43
PROVIDERS: ATTEND Orthopaedic Surgery
DX: S82.64XD Nondisplaced fracture of lateral malleolus of right fibula, subsequent encounter for closed fracture with routine healing (principal)

== ENCOUNTER 2020-10-23 14:23 | Outpatient (CLI) | payer BC, MEDICAID ==
--- NOTE | 2020-10-23 16:34 | XRAY Report ---
PROCEDURE: Chest 2 View X-Ray INDICATIONS: COUGH TECHNIQUE: 2 view(s) of the chest. COMPARISON: None. FINDINGS: Surgical changes and devices: Cervical fixation hardware appears grossly intact. Lungs and pleura: No pleural effusions or pneumothorax. Lungs are clear. Mediastinum: Mediastinal contours are normal. Heart size is normal. Bones and chest wall: No suspicious bony abnormalities. Soft tissues appear unremarkable. IMPRESSION: No acute radiographic findings. Reviewed by: Stephanie Austin MD on 10/23/2020 4:33 PM [facility] Approved by: Stephanie Austin MD on 10/23/2020 4:33 PM [facility] Station ID: [id number]
== END 2020-10-23 23:59 | disposition home or self-care (01) ==
LOC: DI.WCP 14:23
PROVIDERS: ATTEND Internal Medicine
DX: R05 Cough (principal)

== ENCOUNTER 2020-10-26 11:46 | Outpatient (CLI) | payer BC, MEDICAID ==
--- NOTE | 2020-10-26 16:16 | XRAY Report ---
PROCEDURE: Ankle 3 View RT INDICATIONS: RT ANKLE LATERAL MALLEOLUS Fx TECHNIQUE: 3 views of the ankle were acquired. COMPARISON: Ankle x-ray 09/21/1940 FINDINGS: Bones: There is stable alignment with slightly less prominent appearance of fracture lucency within t he distal fibula. Ankle mortise is normally aligned. No suspicious bony lesions. Soft tissues: No tibiotalar joint effusion. Achilles tendon appears normal. IMPRESSION: Stable alignment with continued interval healing of distal fibular fracture. Reviewed by: Tia Pena MD on 10/26/2020 4:15 PM PST Approved by: Tia Pena MD on 10/26/2020 4:15 PM PST Station ID: [id number]
== END 2020-10-26 23:59 | disposition home or self-care (01) ==
LOC: DI.N 11:46
PROVIDERS: ATTEND Orthopaedic Surgery
DX: S82.64XA Nondisplaced fracture of lateral malleolus of right fibula, initial encounter for closed fracture (principal)

== ENCOUNTER 2020-11-13 08:00 | Outpatient (CLI) | payer MEDICAID | END 2020-11-13 23:59 | disposition home or self-care (01) | LOC: LAB.N 08:00 | PROVIDERS: ATTEND Family Medicine | DX: R05 Cough (principal); Z20.828 Contact with and (suspected) exposure to other viral communicable diseases | CPT/HCPCS: 87275; 87276 ==

== ENCOUNTER 2020-11-27 15:22 | Outpatient (CLI) | payer MEDICAID ==
--- NOTE | 2020-11-27 16:07 | XRAY Report ---
PROCEDURE: Chest 2 View X-Ray INDICATIONS: COUGH TECHNIQUE: 2 view(s) of the chest. COMPARISON: 10/23/2020 FINDINGS: Surgical changes and devices: Cervical fusion hardware. Lungs and pleura: No pleural effusions or pneumothorax. Lungs are clear. Mediastinum: Mediastinal contours are normal. Heart size is normal. Bones and chest wall: No suspicious bony abnormalities. Soft tissues appear unremarkable. IMPRESSION: No acute process. Reviewed by: Nilesh Chavis MD on 11/27/2020 4:06 PM [facility] Approved by: Nilesh Chavis MD on 11/27/2020 4:06 PM [facility] Station ID: [id number]
== END 2020-11-27 23:59 | disposition home or self-care (01) ==
LOC: DI.N 15:22
PROVIDERS: ATTEND Family Medicine
DX: R05 Cough (principal); Z20.822 Contact with and (suspected) exposure to COVID-19
CPT/HCPCS: 87275; 87276

== ENCOUNTER 2020-12-01 15:05 | Outpatient (CLI) | payer MEDICAID ==
--- NOTE | 2020-12-01 16:03 | XRAY Report ---
PROCEDURE: Ankle 3 View RT INDICATIONS: RIGHT ANKLE FRACTURE TECHNIQUE: 3 views of the ankle were acquired. COMPARISON: 10/26/2020 FINDINGS: Unchanged alignment of distal fibula. There is interval healing callus formation IMPRESSION: Unchanged alignment of healing distal fibular fracture. Reviewed by: Tony Hudson MD on 12/01/2020 4:01 PM PST Approved by: Tony Hudson MD on 12/01/2020 4:01 PM PST Station ID: [id number]
== END 2020-12-01 23:59 | disposition home or self-care (01) ==
LOC: DI.N 15:05
PROVIDERS: ATTEND Orthopaedic Surgery
DX: S82.64XA Nondisplaced fracture of lateral malleolus of right fibula, initial encounter for closed fracture (principal)

== ENCOUNTER 2020-12-28 10:56 | Outpatient (CLI) | payer BC, MEDICAID ==
--- NOTE | 2020-12-28 13:38 | XRAY Report ---
PROCEDURE: Cervical Spine Complete INDICATIONS: NECK PX TECHNIQUE: 6 view(s) of the cervical spine were acquired. COMPARISON: None. FINDINGS: Bones: No fractures or dislocations to the C7-T1 level. The lateral masses of C1 appear intact on t he odontoid view. No suspicious bony lesions. Anterior fusion is present from C5 through C7. There is overall straightening of normal cervical curvature. Anterior osteophytes are present C3 and C4. Mu ltilevel uncovertebral arthropathy is present. Mild to moderate disc space narrowing is present at C2 -3 through C4-5 with significant disc space narrowing at C5-6 and C6-7. Soft tissues: No prevertebral soft tissue swelling. IMPRESSION: Anterior fusion as above. Multilevel degenerative changes as above. Reviewed by: Tia Pena MD on 12/28/2020 1:37 PM [facility] Approved by: Tia Pena MD on 12/28/2020 1:37 PM [facility] Station ID: [id number]
== END 2020-12-28 10:57 | disposition home or self-care (01) ==
LOC: DI.N 10:56
PROVIDERS: ATTEND Orthopaedic Surgery
DX: M47.812 Spondylosis without myelopathy or radiculopathy, cervical region (principal); M48.02 Spinal stenosis, cervical region; Z98.1 Arthrodesis status

== ENCOUNTER 2020-12-29 08:00 | Outpatient (CLI) | payer BC, MEDICAID | END 2020-12-29 23:59 | disposition home or self-care (01) | LOC: LAB.R 08:00 | PROVIDERS: ATTEND Family Medicine | DX: J06.9 Acute upper respiratory infection, unspecified (principal); Z20.822 Contact with and (suspected) exposure to COVID-19 | CPT/HCPCS: 87070; 87275; 87276 ==

== ENCOUNTER 2021-01-20 15:01 | Outpatient (CLI) | payer BC, MEDICAID | END 2021-01-20 23:59 | disposition home or self-care (01) | LOC: LAB.WCP 15:01 | PROVIDERS: ATTEND Physician Assistant Medical | DX: R05 Cough (principal); Z20.822 Contact with and (suspected) exposure to COVID-19 ==

== ENCOUNTER 2021-07-24 08:41 | Outpatient (CLI) | payer BC, MEDICAID ==
--- NOTE | 2021-07-24 13:36 | XRAY Report ---
PROCEDURE: Ankle 3 View RT INDICATIONS: NONDISPLACED FX OF R LATERAL MALLEOLUS TECHNIQUE: 3 views of the ankle were acquired. COMPARISON: Ankle x-ray 12/01/2020 FINDINGS: Bones: There is a healed fracture of the distal fibula. No new fractures are identified. Ankle mortis e is normally aligned. No suspicious bony lesions. Soft tissues: No tibiotalar joint effusion. Achilles tendon appears normal. IMPRESSION: Healed distal fibular fracture. No visualized acute fracture or dislocation. However, oc cult injury cannot be excluded. Recommend short interval imaging follow-up in 7-10 days as clinically indicated for additional evaluation. Reviewed by: Tia Pena MD on 07/24/2021 1:34 PM PDT Approved by: Tia Pena MD on 07/24/2021 1:34 PM PDT Station ID: [id number]
== END 2021-07-24 23:59 | disposition home or self-care (01) ==
LOC: DI.N 08:41
PROVIDERS: ATTEND Orthopaedic Surgery
DX: S82.831D Other fracture of upper and lower end of right fibula, subsequent encounter for closed fracture with routine healing (principal)

== ENCOUNTER 2021-08-08 08:00 | Outpatient (CLI) | payer BC | END 2021-08-08 23:59 | disposition home or self-care (01) | LOC: LAB.N 08:00 | PROVIDERS: ATTEND Family Medicine | DX: R07.0 Pain in throat (principal); Z20.822 Contact with and (suspected) exposure to COVID-19 ==

== ENCOUNTER 2021-08-08 08:00 | Outpatient (CLI) | payer BC | END 2021-08-08 23:59 | disposition home or self-care (01) | LOC: LAB.N 08:00 | PROVIDERS: ATTEND Family Medicine | DX: R07.0 Pain in throat (principal) | CPT/HCPCS: 87070 ==

== ENCOUNTER 2021-10-08 13:15 | Outpatient (CLI) | payer BC | END 2021-10-08 23:59 | disposition home or self-care (01) | LOC: LAB 13:15 | PROVIDERS: ATTEND Physician Assistant Medical | DX: R05.9 Cough, unspecified (principal); Z20.822 Contact with and (suspected) exposure to COVID-19 ==

== ENCOUNTER 2021-10-26 09:41 | Outpatient (CLI) | payer BC ==
[2021-10-26 12:40] LABS: ESTIMATED AVERAGE GLUCOSE 120 mg/dL (70-100); HEMOGLOBIN A1c% 5.8 % (4.27-6.07)
[2021-10-26 13:19] LABS: CREATININE,URINE 139.8 mg/dL; MICROALBUM/CREATININE RATIO,UR 44.3 ug/mg (<30.0); MICROALBUMIN,URINE 6.2 mg/dL (0-300.0)
[2021-10-26 13:21] LABS: BASOPHILS # (AUTO) 0.1 10^3/uL (0.0-0.1); EOSINOPHILS # (AUTO) 0.2 10^3/uL (0.0-0.7); EOSINOPHILS % (AUTO) 2.9 %; HCT - HEMATOCRIT 33.6 % (37.0-47.0); HGB - HEMOGLOBIN 10.1 g/dL (12.0-16.0); LYMPHOCYTES # (AUTO) 1.3 10^3/uL (1.5-3.5); LYMPHOCYTES % (AUTO) 24.5 %; MEAN CORPUSCULAR HGB CONC 30.1 g/dL (32.0-36.0); MEAN CORPUSCULAR VOLUME 86.4 fL (81.0-99.0); MEAN PLATELET VOLUME 10.6 fL (7.9-10.8); MONOCYTES # (AUTO) 0.4 10^3/uL (0.0-1.0); MONOCYTES % (AUTO) 7.4 %; NEUTROPHILS # (AUTO) 3.3 10^3/uL (1.5-6.6); NEUTROPHILS % (AUTO) 63.8 %; PLT - PLATELET COUNT 256 10^3/uL (130-450); RED BLOOD COUNT 3.89 10^6/uL (4.20-5.40); RED CELL DISTRIBUTION WIDTH 19.5 % (12.0-15.0); WHITE BLOOD COUNT 5.2 x10^3/uL (4.8-10.8)
[2021-10-26 13:36] LABS: THYROID STIMULATING HORMONE 1.46 uIU/mL (0.34-5.60)
[2021-10-26 13:37] LABS: ALBUMIN 4.6 g/dL (3.2-5.5); ALBUMIN/GLOBULIN RATIO 1.5 (1.0-2.2); ALKALINE PHOSPHATASE 69 IU/L (42-121); ALT ALANINE AMINOTRANSFERASE 24 IU/L (10-60); AST ASPARTATE AMINOTRANSFERASE 33 IU/L (10-42); BILIRUBIN,TOTAL 0.6 mg/dL (0.2-1.0); BUN - BLOOD UREA NITROGEN 9 mg/dL (6-20); CALCIUM 9.4 mg/dL (8.5-10.3); CARBON DIOXIDE - CO2 27 mmol/L (21-32); CHLORIDE 100 mmol/L (101-111); CHOL/HDL RATIO 4.2 (<4.4); CHOLESTEROL 246 mg/dL; CREATININE 0.6 mg/dL (0.4-1.0); GFR - MDRD 102 (>89); GLUCOSE 116 mg/dL (70-100); HDL CHOLESTEROL 58 mg/dL; SODIUM 141 mmol/L (135-145); TOTAL PROTEIN 7.6 g/dL (6.7-8.2); TRIGLYCERIDES 548 mg/dL; URIC ACID 4.6 mg/dL (2.6-7.2)
[2021-10-26 15:39] LABS: LDL CHOLESTEROL,DIRECT 125 mg/dL; LDLD/HDL RATIO 2.2 (<4.4)
== END 2021-10-26 23:59 | disposition home or self-care (01) ==
LOC: LAB.WCP 09:41
PROVIDERS: ATTEND Family Medicine
DX: E11.9 Type 2 diabetes mellitus without complications (principal)
CPT/HCPCS: 36415; 80053; 80061; 82043; 82570; 83036; 83721; 84443; 84550; 85025

== ENCOUNTER 2021-11-29 11:33 | Outpatient (CLI) | payer BC, MEDICAID ==
--- NOTE | 2021-11-30 10:44 | Mammography Report ---
BILATERAL DIGITAL SCREENING MAMMOGRAM 3D/2D: 11/29/2021 CLINICAL: Routine screening. Comparison is made to exams dated: 09/10/2019 mammogram and 05/09/2016 mammogram - [facility]. The tissue of both breasts is heterogeneously dense. This may lower the sensitivity of m ammography. No significant masses, calcifications, or other findings are seen in either breast. There has been no significant interval change. IMPRESSION: NEGATIVE There is no mammographic evidence of malignancy. A 1 year screening mammogram is recommended. This exam was interpreted at Station ID: [id number]. NOTE: For mammograms, a report in lay terms will be sent to the patient. Approximately 15% of breast malignancies will not be visualized mammographically. In the management of a palpable breast mass, a negative mammogram must not discourage biopsy of a clinically suspicious lesion. Electronically Signed By: Tim Parry M.D. ar/cuauhtemocrad:11/29/2021 15:31:55 ACR BI-RADS Category 1: Negative 3341F PARENCHYMAL PATTERN: (D) - The breast(s) demonstrate(s) heterogeneously dense fibroglandular randell parr. BI-RADS CATEGORY: (1) - 1 RECOMMENDATION: (ANNUAL) - Recommend routine annual screening mammography. [id number] 1 year screening LATERALITY: (B)
== END 2021-11-29 11:34 | disposition home or self-care (01) ==
LOC: DI.N 11:33
DX: Z12.31 Encounter for screening mammogram for malignant neoplasm of breast (principal)

== ENCOUNTER 2022-03-07 12:54 | Outpatient (CLI) | payer BC, MEDICAID ==
--- NOTE | 2022-03-07 16:22 | XRAY Report ---
PROCEDURE: Elbow 3 View RT INDICATIONS: FX OF RIGHT WRIST AND HAND TECHNIQUE: 3 views of the elbow were acquired. COMPARISON: None FINDINGS: Bones: No fractures or dislocations. Small osteophyte arises from the lateral condyle. No suspicious bony lesions. Soft tissues: No elbow joint effusion. No suspicious soft tissue calcifications. IMPRESSION: Intact right elbow. Reviewed by: María Zayas MD on 03/07/2022 4:20 PM PDT Approved by: María Zayas MD on 03/07/2022 4:20 PM PDT Station ID: [id number]
--- NOTE | 2022-03-07 16:40 | XRAY Report ---
PROCEDURE: Wrist 3 View RT INDICATIONS: FX OF RIGHT WRIST AND HAND TECHNIQUE: 3 views of the wrist were acquired. COMPARISON: None FINDINGS: Bones: Mildly displaced, comminuted fracture of the distal ulna which extends into the distal radioul naveen joint. Soft tissues: No suspicious soft tissue calcifications. IMPRESSION: Distal ulna fracture. Reviewed by: Orly Agarwal MD, PhD on 03/07/2022 4:38 PM PDT Approved by: Orly Agarwal MD, PhD on 03/07/2022 4:38 PM PDT Station ID: [id number]
== END 2022-03-07 23:59 | disposition home or self-care (01) ==
LOC: DI.N 12:54
PROVIDERS: ATTEND Physician Assistant Medical
DX: S52.601A Unspecified fracture of lower end of right ulna, initial encounter for closed fracture (principal)

== ENCOUNTER 2022-03-12 15:15 | Outpatient (CLI) | payer BC, MEDICAID ==
--- NOTE | 2022-03-12 16:24 | XRAY Report ---
PROCEDURE: Wrist 3 View RT INDICATIONS: WRIST FRACTURE TECHNIQUE: 3 views of the wrist were acquired. COMPARISON: 03/07/2022 FINDINGS: Bones: There is an oblique fracture through the distal ulna which shows slightly increased displaceme nt compared to the prior exam. Linear lucency through the ulnar styloid is also noted on one view. Scaphoid view: Not obtained Soft tissues: No suspicious soft tissue calcifications. IMPRESSION: 1. Oblique distal ulnar fracture with slightly increased displacement compared to the prior exam. 2. Additional suspicious linear lucency through the radial styloid could reflect additional radial st yloid nondisplaced fracture Reviewed by: Abundio Flaherty MD on 03/12/2022 3:23 PM [facility] Approved by: Abundio Flaherty MD on 03/12/2022 3:23 PM [facility] Station ID: [id number]
== END 2022-03-12 23:59 | disposition home or self-care (01) ==
LOC: DI.WOS 15:15
PROVIDERS: ATTEND Physician Assistant
DX: S52.601A Unspecified fracture of lower end of right ulna, initial encounter for closed fracture (principal)

== ENCOUNTER 2022-03-19 11:00 | Outpatient (CLI) | payer BC, MEDICAID ==
--- NOTE | 2022-03-19 11:40 | XRAY Report ---
PROCEDURE: Wrist 3 View RT INDICATIONS: RIGHT WRIST FRACTURE TECHNIQUE: 2 views of the wrist were acquired. COMPARISON: 03/12/2022 FINDINGS: Bones: No change in mildly displaced oblique fracture of distal ulna. No change in minimally displac ed ulnar styloid fracture. No suspicious bony lesions. Scaphoid view: Not requested Soft tissues: No suspicious soft tissue calcifications. IMPRESSION: No change in distal radial and ulnar fractures. Reviewed by: Nilesh Chavis MD on 03/19/2022 11:39 AM PDT Approved by: Nilesh Chavis MD on 03/19/2022 11:39 AM PDT Station ID: [id number]
== END 2022-03-19 23:59 | disposition home or self-care (01) ==
LOC: DI.WOS 11:00
PROVIDERS: ATTEND Physician Assistant
DX: S52.691A Other fracture of lower end of right ulna, initial encounter for closed fracture (principal); S52.611A Displaced fracture of right ulna styloid process, initial encounter for closed fracture

== ENCOUNTER 2022-04-02 11:00 | Outpatient (CLI) | payer BC, MEDICAID ==
--- NOTE | 2022-04-02 19:16 | XRAY Report ---
PROCEDURE: Wrist 3 View RT INDICATIONS: WRIST FX TECHNIQUE: 3 views of the wrist were acquired. COMPARISON: 04/15/2022 FINDINGS: Bones: Oblique fracture through the distal ulna with medial displacement is again noted, stable from prior. Nondisplaced radial styloid fracture also noted. No interval change Soft tissues: No suspicious soft tissue calcifications. IMPRESSION: Unchanged oblique displaced distal ulnar fracture and nondisplaced radial styloid fracture Reviewed by: Abundio Flaherty MD on 04/02/2022 6:14 PM [facility] Approved by: Abundio Flaherty MD on 04/02/2022 6:14 PM [facility] Station ID: [id number]
== END 2022-04-02 23:59 | disposition home or self-care (01) ==
LOC: DI.WOS 11:00
PROVIDERS: ATTEND Physician Assistant
DX: S52.691A Other fracture of lower end of right ulna, initial encounter for closed fracture (principal); S52.514A Nondisplaced fracture of right radial styloid process, initial encounter for closed fracture

== ENCOUNTER 2022-04-18 06:00 | Outpatient (CLI) | payer BC, MEDICAID ==
--- NOTE | 2022-04-18 17:12 | XRAY Report ---
PROCEDURE: Wrist 3 View RT INDICATIONS: WRIST FRACTURE TECHNIQUE: 3 views of the wrist were acquired. COMPARISON: 04/02/2022 FINDINGS: Bones: Oblique fracture through the distal ulna shows softening the fracture lines and periosteal qing ction. Nondisplaced radial styloid fracture noted as well Soft tissues: No suspicious soft tissue calcifications. IMPRESSION: Healing oblique distal ulnar and radial styloid fractures Reviewed by: Abundio Flaherty MD on 04/18/2022 4:11 PM [facility] Approved by: Abundio Flaherty MD on 04/18/2022 4:11 PM [facility] Station ID: [id number]
== END 2022-04-18 23:59 | disposition home or self-care (01) ==
LOC: DI.WOS 06:00
PROVIDERS: ATTEND Orthopaedic Surgery
DX: S52.691D Other fracture of lower end of right ulna, subsequent encounter for closed fracture with routine healing (principal); S52.511D Displaced fracture of right radial styloid process, subsequent encounter for closed fracture with routine healing

== ENCOUNTER 2022-05-07 08:00 | Outpatient (CLI) | payer BC, MEDICAID ==
--- NOTE | 2022-05-07 17:07 | XRAY Report ---
PROCEDURE: Wrist 3 View RT INDICATIONS: WRIST FX TECHNIQUE: 3 views of the wrist were acquired. COMPARISON: X-ray of the right wrist, 04/18/2022. FINDINGS: Bones: There is an oblique fracture involving the distal ulna with mild displacement. Periosteal reac tion consistent with healing. Alignment is stable. Again noted is a radial styloid fracture with stab le alignment. No suspicious bony lesions. Soft tissues: No suspicious soft tissue calcifications. IMPRESSION: Healing fractures of the distal ulna and radius. Reviewed by: Kaiden Ambrocio MD on 05/07/2022 5:06 PM PDT Approved by: Kaiden Ambrocio MD on 05/07/2022 5:06 PM PDT Station ID: [id number]
== END 2022-05-07 23:59 | disposition home or self-care (01) ==
LOC: DI.WOS 08:00
PROVIDERS: ATTEND Orthopaedic Surgery
DX: S52.591D Other fractures of lower end of right radius, subsequent encounter for closed fracture with routine healing (principal); S52.691D Other fracture of lower end of right ulna, subsequent encounter for closed fracture with routine healing

== ENCOUNTER 2022-05-29 00:24 | Outpatient (CLI) | payer BC, MEDICAID | END 2022-05-29 23:59 | disposition critical access hospital (66) | LOC: EMS 00:24 | DX: S01.01XA Laceration without foreign body of scalp, initial encounter (principal); W18.39XA Other fall on same level, initial encounter; Y92.009 Unspecified place in unspecified non-institutional (private) residence as the place of occurrence of the external cause ==

== ENCOUNTER 2022-05-29 00:57 | Emergency (ER) | payer BC, MEDICAID ==
[2022-05-29] MEDS ORDERED: LIDOCAINE 2%-EPI 1:100000 20 ML MDV ONE (02:36)
== END 2022-05-29 01:54 | disposition left against medical advice (07) ==
LOC: ED 00:57
DX: Z53.21 Procedure and treatment not carried out due to patient leaving prior to being seen by health care provider (principal)

== ENCOUNTER 2022-07-22 08:00 | Outpatient (CLI) | payer BC, MEDICAID ==
--- NOTE | 2022-07-22 15:23 | XRAY Report ---
PROCEDURE: Chest 2 View X-Ray INDICATIONS: COUGH TECHNIQUE: 2 view(s) of the chest. COMPARISON: Chest radiographs 11/27/2020 FINDINGS: Surgical changes and devices: Physical changes are seen projecting on the lower cervical spine. Lungs and pleura: No pleural effusions or pneumothorax. Lungs are clear. Mediastinum: Mediastinal contours are normal. Heart size is normal. Bones and chest wall: No suspicious bony abnormalities. Soft tissues appear unremarkable. IMPRESSION: No acute cardiopulmonary abnormality. Reviewed by: Tim Parry MD on 07/22/2022 2:21 PM [facility] Approved by: Tim Parry MD on 07/22/2022 2:21 PM [facility] Station ID: [id number]
== END 2022-07-22 23:59 | disposition home or self-care (01) ==
LOC: DI.N 08:00
PROVIDERS: ATTEND Physician Assistant Medical
DX: R05.3 Chronic cough (principal)

== ENCOUNTER 2022-09-17 08:00 | Outpatient (CLI) | payer BC, MEDICAID ==
--- NOTE | 2022-09-17 16:39 | XRAY Report ---
PROCEDURE: Wrist 3 View RT INDICATIONS: RIGHT WRIST FRACTURE TECHNIQUE: 3 views of the wrist were acquired. COMPARISON: 06/18/2022 FINDINGS: Bones: There is interval nearly healed distal fibular fracture and healed distal radial fracture. No new fracture or dislocation. Wrist alignment is anatomic. Mild the wrist joint osteoarthritic changes are again seen. No suspicious bony lesions. Scaphoid view: Scaphoid is intact. Soft tissues: No suspicious soft tissue calcifications. IMPRESSION: Interval healed distal radial and ulnar fractures with anatomic wrist alignment. No new fracture or d islocation. Mild the wrist joint osteoarthritis. Reviewed by: Dioni Ramires MD on 09/17/2022 4:38 PM PDT Approved by: Dioni Ramires MD on 09/17/2022 4:38 PM PDT Station ID: [id number]
== END 2022-09-17 23:59 | disposition home or self-care (01) ==
LOC: DI.WOS 08:00
PROVIDERS: ATTEND Orthopaedic Surgery
DX: M19.031 Primary osteoarthritis, right wrist (principal)

== ENCOUNTER 2022-10-11 12:46 | Outpatient (CLI) | payer BC, MEDICAID ==
--- NOTE | 2022-10-11 15:43 | CT Report ---
PROCEDURE: Low Dose Lung Cancer Screen INDICATIONS: CIGARETTE SMOKER TECHNIQUE: Noncontrast low-dose axial images were acquired from the pulmonary apices to the posterior costophren ic angles. Multiplanar MIP reformats were then reconstructed. For radiation dose reduction, the follo wing was used: automated exposure control, adjustment of mA and/or kV according to patient size. COMPARISON: None. FINDINGS: Image quality: Excellent. Lungs and pleura: Right upper lobe nodule measuring 0.2 cm, (4/1 5). No mass or significant pulmonar y nodules. No acute airspace opacity. There are a few areas of distal mucus airway plugging. The cent ral airways are clear. Mediastinum: Heart size is normal. Mild coronary artery calcifications. No pericardial effusion. L eft anterior mediastinal mass measuring 2.9 x 1.9 cm, (3/20). Measures 17 Hounsfield units. No medias tinal adenopathy by size criteria. Thoracic aorta and central pulmonary arteries are normal in size. Esophagus is normal in caliber. No hiatal hernia. Bones and chest wall: ACDF. No suspicious bony lesions. T8 intraosseous hemangioma. No vertebral bod y compression fractures. No axillary or supraclavicular adenopathy by size criteria. The thyroid is normal in size and there are no incidental findings. Abdomen: Visualized upper abdomen solid organs and bowel loops appear normal in the absence of contr ast. IMPRESSION: 1. No significant pulmonary nodules. Lung RADS 2s. Recommend follow-up lung cancer screening chest CT in 12 months. 2. Mild coronary artery calcifications. 3. Anterior mediastinal mass measuring 2.9 cm. This could represent thymoma, thymic cyst, lymphoma, o r germ cell tumor. -Recommend CT chest with IV contrast for further characterization. Message could not be left due to full mailbox. Reviewed by: Robert Berry MD on 10/11/2022 3:42 PM PST Approved by: Robert Berry MD on 10/11/2022 3:42 PM PST Station ID: [id number]
== END 2022-10-11 12:47 | disposition home or self-care (01) ==
LOC: DI 12:46
PROVIDERS: ATTEND Internal Medicine
DX: Z12.2 Encounter for screening for malignant neoplasm of respiratory organs (principal); I25.10 Atherosclerotic heart disease of native coronary artery without angina pectoris; F17.210 Nicotine dependence, cigarettes, uncomplicated; R93.89 Abnormal findings on diagnostic imaging of other specified body structures

== ENCOUNTER 2022-12-10 08:00 | Outpatient (CLI) | payer BC, MEDICAID ==
[2022-12-10 17:44] LABS: BASOPHILS # (AUTO) 0.1 10^3/uL (0.0-0.1); BASOPHILS % (AUTO) 0.7 %; EOSINOPHILS # (AUTO) 0.1 10^3/uL (0.0-0.7); EOSINOPHILS % (AUTO) 1.1 %; HCT - HEMATOCRIT 38.3 % (37.0-47.0); HGB - HEMOGLOBIN 12.1 g/dL (12.0-16.0); LYMPHOCYTES # (AUTO) 1.8 10^3/uL (1.5-3.5); LYMPHOCYTES % (AUTO) 24.1 %; MEAN CORPUSCULAR HEMOGLOBIN 27.9 pg (27.0-31.0); MEAN CORPUSCULAR HGB CONC 31.6 g/dL (32.0-36.0); MEAN CORPUSCULAR VOLUME 88.5 fL (81.0-99.0); MEAN PLATELET VOLUME 10.9 fL (7.9-10.8); MONOCYTES # (AUTO) 0.6 10^3/uL (0.0-1.0); MONOCYTES % (AUTO) 7.4 %; NEUTROPHILS % (AUTO) 66.4 %; PLT - PLATELET COUNT 257 10^3/uL (130-450); RED BLOOD COUNT 4.33 10^6/uL (4.20-5.40); RED CELL DISTRIBUTION WIDTH 17.7 % (12.0-15.0); WHITE BLOOD COUNT 7.5 x10^3/uL (4.8-10.8)
[2022-12-10 18:14] LABS: ALBUMIN 4.7 g/dL (3.2-5.5); ALBUMIN/GLOBULIN RATIO 1.5 (1.0-2.2); BILIRUBIN,TOTAL 0.4 mg/dL (0.2-1.0); CALCIUM 10.2 mg/dL (8.5-10.3); CREATININE 0.5 mg/dL (0.4-1.0); POTASSIUM 4.2 mmol/L (3.5-5.0); TOTAL PROTEIN 7.9 g/dL (6.7-8.2)
== END 2022-12-10 23:59 | disposition home or self-care (01) ==
LOC: LAB.N 08:00
PROVIDERS: ATTEND Nurse Practitioner
DX: R10.13 Epigastric pain (principal)
CPT/HCPCS: 36415; 80053; 82150; 83690; 85025

== ENCOUNTER 2023-02-04 15:56 | Outpatient (CLI) | payer BC, MEDICAID ==
--- NOTE | 2023-02-04 16:41 | XRAY Report ---
PROCEDURE: Hip w/Pelvis 2-3V RT INDICATIONS: Chronic Right Hip Pain TECHNIQUE: AP pelvis with lateral view(s) of the right hip(s). COMPARISON: None. FINDINGS: Bones: No fractures or dislocations. Mild right worse than left bilateral hip joint osteoarthritic changes are seen with superior joint space narrowing and subchondral sclerosis. No evidence of avascu lar necrosis of femoral head. Pelvic ring appears intact. No suspicious bony lesions. Soft tissues: The visualized bowel gas pattern is normal. No suspicious soft tissue calcifications. IMPRESSION: Mild right worse than left bilateral hip joint osteoarthritis. No pelvic or hip fracture. No evidence of avascular necrosis. Reviewed by: Dioni Ramires MD on 02/04/2023 3:40 PM [facility] Approved by: Dioni Ramires MD on 02/04/2023 3:40 PM [facility] Station ID: [id number]
== END 2023-02-04 15:57 | disposition home or self-care (01) ==
LOC: DI 15:56
PROVIDERS: ATTEND Internal Medicine
DX: M16.0 Bilateral primary osteoarthritis of hip (principal)

== ENCOUNTER 2023-02-06 11:20 | Outpatient (CLI) | payer BC, MEDICAID ==
--- NOTE | 2023-02-07 09:56 | Mammography Report ---
BILATERAL DIGITAL SCREENING MAMMOGRAM 3D/2D: 02/06/2023 CLINICAL: Routine screening. Comparison is made to exams dated: 11/29/2021 mammogram, 09/10/2019 ultrasound, 09/10/2019 mammogram, 05/09/2016 ultrasound, 05/09/2016 mammogram - [facility], and 06/17/2015 mammogram - [facility]. Both breasts are heterogeneously dense, which may obscure small masses (category c / 51-75% glandular tissue). No significant masses, calcifications, or other findings are seen in either breast. There has been no significant interval change. IMPRESSION: NEGATIVE There is no mammographic evidence of malignancy. A 1 year screening mammogram is recommended. Based on the Tyrer Cuzick model (a risk assessment model) the patients lifetime risk is 7.0% and her 10 year risk is 2.9%. According to the ACR, ACS, and NCCN guidelines, an annual breast MRI exam linda g with mammogram is recommended if the patients lifetime risk is 20% or greater. This exam was interpreted at Station ID: [id number]. NOTE: For mammograms, a report in lay terms will be sent to the patient. Approximately 15% of breast malignancies will not be visualized mammographically. In the management of a palpable breast mass, a negative mammogram must not discourage biopsy of a clinically suspicious lesion. Electronically Signed By: Ryan rodriguez/arnel:02/06/2023 12:10:55 letter sent: No_Letter ACR BI-RADS Category 1: Negative 3341F PARENCHYMAL PATTERN: (D) - The breast(s) demonstrate(s) heterogeneously dense fibroglandular randell parr. BI-RADS CATEGORY: (1) - 1 Mammogram [id number] 1 year screening LATERALITY: (B)
== END 2023-02-06 11:21 | disposition home or self-care (01) ==
LOC: DI.N 11:20
DX: Z12.31 Encounter for screening mammogram for malignant neoplasm of breast (principal)

== ENCOUNTER 2023-02-22 13:13 | Outpatient (CLI) | payer BC, MEDICAID ==
--- NOTE | 2023-02-22 19:32 | XRAY Report ---
PROCEDURE: Elbow 3 View LT INDICATIONS: BURSITIS, ELBOW TECHNIQUE: 3 views of the elbow were acquired. COMPARISON: None available at time of dictation. FINDINGS: Bones: No fractures or dislocations. No suspicious bony lesions. Soft tissues: No effusion. Enthesophyte of the lateral epicondyles. Mild soft tissue prominence over lying the olecranon. IMPRESSION: No acute osseous abnormality. Soft tissue prominence overlying the olecranon could represent bursitis in the correct clinical setti ng. Lateral epicondyle enthesophyte. Recommend clinical correlation for epicondylitis. Reviewed by: Grover Pugh DO on 02/22/2023 6:31 PM [facility] Approved by: Grover Pugh DO on 02/22/2023 6:31 PM [facility] Station ID: [id number]
== END 2023-02-22 13:14 | disposition home or self-care (01) ==
LOC: DI 13:13
PROVIDERS: ATTEND Registered Nurse
DX: M70.30 Other bursitis of elbow, unspecified elbow (principal); M77.8 Other enthesopathies, not elsewhere classified; M25.722 Osteophyte, left elbow

== ENCOUNTER 2023-03-13 08:00 | Outpatient (CLI) | payer BC, MEDICAID ==
--- NOTE | 2023-03-13 10:31 | XRAY Report ---
PROCEDURE: Hand 3 View LT INDICATIONS: LEFT HAND CYST TECHNIQUE: 3 views of the hand(s) acquired. COMPARISON: None. FINDINGS: Bones: No fractures or dislocations. No suspicious bony lesions. Mild polyarticular degenerative changes present primarily involving the interphalangeal joints. Soft tissues: No suspicious soft tissue calcifications. IMPRESSION: No acute bony abnormality. If symptoms persist with conservative management, consider repeat radiogra phs in 10-14 days or cross-sectional imaging. Reviewed by: Tim Tamez MD on 03/13/2023 10:30 AM PDT Approved by: Tim Tamez MD on 03/13/2023 10:30 AM PDT Station ID: [id number]
== END 2023-03-13 23:59 | disposition home or self-care (01) ==
LOC: DI.WOS 08:00
PROVIDERS: ATTEND Physician Assistant Surgical
DX: M19.042 Primary osteoarthritis, left hand (principal)

== ENCOUNTER 2023-05-05 08:00 | Outpatient (CLI) | payer BC, MEDICAID | END 2023-05-05 23:59 | disposition home or self-care (01) | LOC: LAB.N 08:00 | PROVIDERS: ATTEND Internal Medicine | DX: R35.0 Frequency of micturition (principal) | CPT/HCPCS: 87086 ==

== ENCOUNTER 2023-07-04 10:09 | Outpatient (CLI) | payer BC, MEDICAID ==
--- NOTE | 2023-07-05 09:41 | MRI Report ---
PROCEDURE: SHOULDER WO - RT INDICATIONS: SHOULDER PAIN TECHNIQUE: Noncontrast oblique coronal T2 fast spin echo with fat saturation, oblique sagittal T1 spin echo and T2 fast spin echo with fat saturation, axial T1 spin echo and T2 fast spin echo with fat saturation t hrough the shoulder. COMPARISON: X-ray right shoulder, 06/23/2023. FINDINGS: Image quality: There are motion artifacts. Rotator cuff: Moderate supraspinatus, infraspinatus and subscapularis tendinosis without high-grade t endon tear. No rotator cuff muscle atrophy on sagittal images. Bones and bursae: No bone marrow contusions or fractures. Moderate acromioclavicular and glenohumera l joint degeneration. The acromion demonstrates conventional anatomy, without an os acromiale. No p athologic subacromial/subdeltoid bursal fluid is present. There is red marrow conversion in the prox imal humeral shaft. Capsule and soft tissues: There is degenerative labral fraying. The glenohumeral ligaments appear in tact. There is interstitial tear and moderate tendinosis of the long head of the biceps tendon which demonstrates normal location. The rotator interval appears irregular. The coracohumeral ligament is thickened. IMPRESSION: 1. Moderate rotator cuff tendinosis without high-grade tendon tear. No rotator cuff muscle atrophy. 2. Interstitial tear and moderate tendinosis of the long head of the biceps tendon. 3. Moderate acromioclavicular and glenohumeral joint degeneration. 4. Irregular rotator interval with thickening coracohumeral ligament. Recommend clinical correlation for adhesive capsulitis. 5. There is reactive marrow conversion in the proximal humeral shaft. The finding may be associated w ith anemia or hematological disorder. Recommend clinical correlation. Reviewed by: Kaiden Ambrocio MD on 07/05/2023 9:40 AM PDT Approved by: Kaiden Ambrocio MD on 07/05/2023 9:40 AM PDT Station ID: [id number]
== END 2023-07-04 10:10 | disposition home or self-care (01) ==
LOC: DI 10:09
PROVIDERS: ATTEND Registered Nurse
DX: M75.81 Other shoulder lesions, right shoulder (principal); S46.112A Strain of muscle, fascia and tendon of long head of biceps, left arm, initial encounter; M19.012 Primary osteoarthritis, left shoulder; R93.89 Abnormal findings on diagnostic imaging of other specified body structures

== ENCOUNTER 2023-09-01 08:00 | Outpatient (CLI) | payer BC, MEDICAID ==
--- NOTE | 2023-09-01 16:45 | XRAY Report ---
PROCEDURE: Shoulder 1 View RT INDICATIONS: RIGHT SHOULDER PAIN TECHNIQUE: 1 views of the shoulder were acquired. COMPARISON: 06/23/2023 plain films FINDINGS: Bones: No fractures or dislocations. No suspicious bony lesions. Visualized ribs appear intact. Soft tissues: No suspicious soft tissue calcifications. The visualized lungs are within normal limi ts. IMPRESSION: No acute fracture. No osseous lesion. If symptoms and/or clinical suspicion for patholog y continue, further assessment with repeat plain films, or advanced imaging (e.g., CT, MRI, or bone s can) is recommended for further assessment. Reviewed by: Nilesh Chavis MD on 09/01/2023 4:44 PM PDT Approved by: Nilesh Chavis MD on 09/01/2023 4:44 PM PDT Station ID: [id number]
== END 2023-09-01 23:59 | disposition home or self-care (01) ==
LOC: DI.WOS 08:00
PROVIDERS: ATTEND Physician Assistant Surgical
DX: M25.511 Pain in right shoulder (principal)

== ENCOUNTER 2023-11-01 10:22 | Outpatient (CLI) | payer BC, MEDICAID ==
--- NOTE | 2023-11-03 08:36 | MRI Report ---
PROCEDURE: CERVICAL SPINE WO INDICATIONS: CERVICAL RADICULOPATHY TECHNIQUE: Noncontrast sagittal T1 spin echo and T2 fast spin echo, sagittal STIR, foraminal oblique sagittal T2 fast spin echo, and axial gradient echo or T2 fast spin echo through the cervical spine. COMPARISON: CT cervical spine dated 06/21/2022. FINDINGS: Image quality: Excellent. Alignment and Curvature: Remote ACDF at C5-C7 with anterior plate and screw fixation and immature in terbody fusion. Trace anterolisthesis of C3 on C4 and C4 on C5. Trace anterolisthesis of C7 on T1. Bone Marrow: Marrow demonstrates normal overall signal. Spinal Cord: Visualized spinal cord has normal size and signal. No cerebellar tonsillar herniation. Paraspinous Soft Tissues: No paravertebral masses. Prevertebral soft tissues are normal in thicknes s. C2-C3: Bilateral facet hypertrophy. No canal stenosis or foraminal stenosis. C3-C4: Trace anterolisthesis of C3 on C4. No canal stenosis. Bilateral uncovertebral joint hypertro phy and facet hypertrophy. Moderate right foraminal narrowing. Severe left foraminal narrowing with l eft foraminal C4 nerve root impingement. C4-C5: Trace anterolisthesis of C4 on C5. No canal stenosis. Bilateral facet hypertrophy, bilateral moderate foraminal narrowing. C5-C6: Fused. No central canal stenosis. Bilateral uncovertebral joint osteophyte and facet hypertro phy with moderate to severe bilateral foraminal narrowing and a degree of bilateral foraminal C6 nerv e root impingement. C6-C7: Fused. No central canal stenosis. Bilateral uncovertebral joint osteophyte. Bilateral at leas t moderate foraminal narrowing with flattening deformity on the exiting bilateral C7 nerve roots. C7-T1: No canal stenosis or significant foraminal stenosis. IMPRESSION: 1. Nature C5-C7 ACDF. 2. Multilevel facet arthropathy and uncovertebral joint hypertrophy. 3. No central canal stenosis. 4. Multilevel foraminal narrowing as described above. Findings include severe left foraminal narrowin g plus moderate right foraminal narrowing at C3-C4, bilateral moderate foraminal narrowing at C4-C5, moderate to severe bilateral foraminal narrowing at C5-C6, and at least moderate bilateral foraminal narrowing at C6-C7. Reviewed by: Ravi Guerra MD on 11/03/2023 8:35 AM PST Approved by: Ravi Guerra MD on 11/03/2023 8:35 AM PST Station ID: [id number]
== END 2023-11-01 10:23 | disposition home or self-care (01) ==
LOC: DI 10:22
PROVIDERS: ATTEND Internal Medicine
DX: M47.22 Other spondylosis with radiculopathy, cervical region (principal); M48.02 Spinal stenosis, cervical region; Z98.1 Arthrodesis status

== ENCOUNTER 2024-06-23 08:00 | Outpatient (CLI) | payer BC, MEDICAID | END 2024-06-23 08:01 | disposition home or self-care (01) | LOC: LAB.R 08:00 | PROVIDERS: ATTEND Nurse Practitioner | DX: R21 Rash and other nonspecific skin eruption (principal) | CPT/HCPCS: 87070; 87205 ==

== ENCOUNTER 2024-06-23 10:28 | Outpatient (CLI) | payer BC, MEDICAID ==
[2024-06-23 10:45] LABS: BASOPHILS % (AUTO) 0.4 %; EOSINOPHILS # (AUTO) 0.1 10^3/uL (0.0-0.7); EOSINOPHILS % (AUTO) 0.8 %; HCT - HEMATOCRIT 34.6 % (37.0-47.0); HGB - HEMOGLOBIN 12.2 g/dL (12.0-16.0); LYMPHOCYTES # (AUTO) 1.3 10^3/uL (1.5-3.5); LYMPHOCYTES % (AUTO) 17.1 %; MEAN CORPUSCULAR HGB CONC 35.3 g/dL (32.0-36.0); MEAN CORPUSCULAR VOLUME 93.5 fL (81.0-99.0); MEAN PLATELET VOLUME 9.5 fL (7.9-10.8); MONOCYTES # (AUTO) 0.6 10^3/uL (0.0-1.0); MONOCYTES % (AUTO) 8.6 %; NEUTROPHILS # (AUTO) 5.4 10^3/uL (1.5-6.6); NEUTROPHILS % (AUTO) 72.6 %; PLT - PLATELET COUNT 258 10^3/uL (130-450); RED CELL DISTRIBUTION WIDTH 11.9 % (12.0-15.0); WHITE BLOOD COUNT 7.4 x10^3/uL (4.8-10.8)
[2024-06-23 10:59] LABS: CREATININE 0.6 mg/dL (0.6-1.3); POTASSIUM 3.6 mmol/L (3.5-4.5)
== END 2024-06-23 10:29 | disposition home or self-care (01) ==
LOC: LAB 10:28
PROVIDERS: ATTEND Nurse Practitioner
DX: R21 Rash and other nonspecific skin eruption (principal); Z79.899 Other long term (current) drug therapy
CPT/HCPCS: 36415; 80048; 81599; 85025